=== PATIENT | female | born 1965 | race Caucasian/White ===

== ENCOUNTER 2023-08-25 16:35 | Outpatient (CLI) | payer BC, SELFPAY ==
--- OUTSIDE RECORDS SUMMARY | 2023-08-25 16:37 | XMS_ITS | Clinical Summary ---
Author Organization [facility] Address [address] [place] [address] Care Team Providers Care Portfolio Management Marketing Name Role Phone Cachorro Magaña [facility] Primary Care Provid er Source Comments You are receiving this document as you are listed as the primary care provider,follow-up provider, or the patient has been referred to you for consultation.This is in compliance with the Medicare and[facility], In[facility] EHR Incentive Program,which states Providers who transition their patient to another setting of careor provider of care or refers their patient to another provider of care shouldprovide summary care record for each transition of care or referral. HESIODO Allergies Active Allergy Reactions Criticality Noted Date Comments Azithromycin 03/10/2015 Erythromycin Itching,Nausea And Vomiting 2014 Morphine Itching 01/28/2015 Penicillins Itching,Nausea And Vomiting 015 Medications Medication Sig Dispensed Refills Start Date End Date Status oxyCODONE (AKA ROXICODONE) 5 MG immediate release tabletIndications:ALBERT CORRALES TueApr 02, 2015 11:07 AM Received from: External Pharmacy Take 5 mg by mouth every 6 hours as needed (Take 5 mg by mouth every 6 hours as needed.). Reported on 06/16/2016 Indications: ALBERT MCPHERSON TueApr 02, 2015 11:07 AM Received from: External Pharmacy 0 03/27/2015 Active methocarbamol (AKA ROBAXIN) 500 MG tabletIndications:ALBERT CORRALES TueApr 02, 2015 11:07 AM Received from: External Pharmacy Take 500 mg by mouth 3 times daily. 0 03/27/2015 Active DULoxetine (CYMBALTA) 30 MG capsule Take 1 Cap by mouth daily. 90 Cap 0 06/16/2016 Active traZODone (DESYREL) 100 MG tablet Take 2 Tabs by mouth daily at bedtime. 180 Tab 3 08/13/2016 Active omeprazole (PRILOSEC) 20 MG capsule Take 1 Cap by mouth daily. Reported on 06/16/2016 90 Cap 09/07/2016 Active eszopiclone (LUNESTA) 2 MG tablet Take 1 Tab by mouth daily at bedtime. 30 Tab 3 09/07/2016 Active ALPRAZolam (XANAX) 0.5 MG tablet Take 1 Tab by mouth at bedtime as needed. 20 Tab 09/07/2016 Active promethazine (PHENERGAN) 25 MG tablet Take 1 Tab by mouth every 8 hours as needed for Nausea. 15 Tab 10/26/2016 Active Active Problems Problem Noted Date Diagnosed Date Chronic insomnia 09/07/2016 JANIS (generalized anxiety disorder) 09/07/2016 Tobacco abuse 06/18/2014 Major depressive disorder, recurrent episode, mo derate 06/18/2014 Obesity (BMI 30-39.9) 06/18/2014 Chronic back pain 06/18/2014 Social History Tobacco Use Types Packs/Day Years Used Date Smoking Tobacco: Every Day Cigarettes Smokeless Tobacco: Never Alcohol Use Standard Drinks/Week Comments No 0 (1 standard drink = 0.6 oz pur e alcohol) Sex and Gender Information Value Date Recorded Sex Assigned at Not on file Gender Identity Not on file Sexual Orientation Not on file Last Filed Vital Signs Vital Sign Reading Time Taken Comments Blood Pressure 136/84 10/26/2016 10:08 AM CDT Pulse 80 10/26/2016 10:08 AM CDT Temperature 36.6 ??C (97.9 ??F) 04/02/2015 1 1:08 AM 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 Respiratory Rate - - Oxygen Saturation - - Inhaled Oxygen Concentration - - Weight 115.1 kg (253 lb 12.8 oz) 2016 10:08 AM CDT Height 173.5 cm (5' 8.31) 01/28/2015 1 1:16 AM 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 Body Mass Index 38.24 01/28/2015 11:16 AM 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 Plan of Treatment Health Maintenance Due Date Last Done Comments Cervical Cancer Screening Due 1966 Hep C Screening (Preventive Services) 1966 Mammogram 1966 HIV Screening (Preventive Services) 1982 Adult Preventive Visit 1984 DTaP/Tdap/Td (1 - Tdap) 1985 HepB (1) 1985 FIT Colon Cancer Screening 2010 Zoster/Shingles (1 of 2) 2016 Cholesterol 06/19/2019 06/18/2014 COVID-19 Vaccine (1 - 2022-2 4 season) 2022 Influenza (#1) 2023 HepA Aged Out No longer eligi ble based on patient's age to complete this topic Hib Aged Out No longer eligi ble based on patient's age to complete this topic IPV (Polio) Aged Out No longer eligi ble based on patient's age to complete this topic MCV4 Aged Out No longer eligi ble based on patient's age to complete this topic Pneumococcal Aged Out No longer eligi ble based on patient's age to complete this topic Procedures Procedure Name Priority Date/Time Associated Diagnosis Comments LIPID PANEL & DIRECT LDL (IF NEEDED) Routine 06/18/2014 11:43 AM CDT Screening cholesterol level from Last 3 Months or Most Recently Relevant to Health Maintenance Results * Lipid Panel and Direct LDL(If Needed) (06/18/2014 11:43 AM CDT) Cholesterol 170 0 - 200 mg/dL HP CONVERSION Triglycerides 58 0 - 149 mg/dL HP CONVERSION HDL Cholesterol 56 >39 mg/dL HP CONVERSION Cholesterol/HDL Ratio Screen 3.0 HP CONVERSION LDL Calculated 102 19 - 130 mg/dL HP CONVERSION Hours Fasting 8.5 HP CONVERSION 06/18/2014 11:4 3 AM CDT 06/18/2014 2:48 PM CDT Narrative HP CONVERSION - 06/18/2014 4:01 PM CDT Performed at [facility], [address] [id number] Cachorro Magaña [facility] LAB_1 HP CONVERSION from Last 3 Months or Most Recently Relevant to Health Maintenance Care Teams Portfolio Management Marketing Relationship Specialty Start Date End Date Cachorro Magaña, [facility] [address] [place] [address] PCP - General 11/26/14
--- OUTSIDE RECORDS SUMMARY | 2023-08-25 16:37 | XMS_ITS | Continuity of Care Document ---
Author Organization [facility] Address [address] [place] [address] Phone Care Team Providers Care Parachute Rigger Name Role Phone Charles DE JESUS PTLupe [...] Provider Providers Copied on Encounter [facility], [address], [place], [address], [place] tel:[phone] [facility] 7390 No Information 5 Soto PT Lupe. [address] [place], [address], [place]. tel:[phone] Referring Provider: Cachorro barney MD, [address], [place], [address]. tel:[phone] Est Pt Eval [address] [facility], [address], [place], [id number], [place] tel:[phone] [facility] No Information 5 Jb Winter. [address] , [address], [place], [address], [place]. tel:[phone] Referring Provider: Cachorro barney MD, [address], [place], [address]. tel:[phone] [facility], [address], [place], [address], [place] tel:[phone] [facility] No Information 5 Cathi Bell. [address], [place], [place], [address], [place]. tel:[phone] Referring Provider: Ray Osborne, [address], [place], [address] . tel:[phone] [facility], [address], [place], [place], [address], [place] tel:[phone] [facility] No Information 5 Cathi Bell. [address], [place], [place], [address], [place]. tel:[phone] Referring Provider: Cachorro barney MD, [address], [place], [address]. tel:[phone] Est Pt Eval 25 Min [facility], [address], [place], [place], [address], [place] tel:[phone] [facility] No Information 5 King MIGUEL ANGEL Bell. [address], [facility], [place], [place], [address], [place]. tel:[phone] Referring Provider: Cachorro barney MD, [address], [place], [address]. tel:[phone] [facility], [address], [place], [place], [address], [place] tel:[phone] [facility] No Information 3 No Information Referring Provider: Ray Osborne, [address], [place], [address] . tel:[phone] Offic/outpt E&m New Mod-hi 45 [facility], [address], [place], [place], [address], [place] tel:[phone] [facility] No Information 3 No Information Referring Provider: Ray Osborne, [address], [place], [address] . tel:[phone] Family History Family Member Type Diagnosis Age At Onset No Information Payers Payer name Insurance type Covered libertarian ID Authoriza tion(s) Medical Assistance [facility] [id number] Social History Type Description Quantity Date Captured [...]
--- OUTSIDE RECORDS SUMMARY | 2023-08-25 16:37 | XMS_ITS | Continuity of Care Document ---
Author Organization [facility] Address [address] [place] [address] Phone Care Team Providers Care Cyber Security Engineer Name Role Phone Will Yordan GONZALEZ Unavailable [...] Diagnoses Date Provider Providers Copied on Encounter [facility], [address] [place] [address] [place], [address] , [place] tel:[phone] [facility] [place] No Information 2 Neo Farr. [address] [place], [place], [address] , [place]. tel: [phone] [facility], [address] [place] [address] [place], [address] , [place] tel: [phone] [facility] [place] No Information 7 Syl Cordova. [address] [place], [place], [address] , [place]. tel:[phone] OFFICE/OUTPAT IENT VISIT, EST [facility], [address] [place] [address] [place], [address] , [place] tel: [phone] [facility] [place] Back Pain (chief complaint) CervicalgiaLow back painOther intervertebral disc degeneration, lumbar regionPain in left shoulder 7 Syl Tasha. [address] [place], [place], [address] , [place]. tel: [phone] Referring Provider: [place] [facility] [address] [place], [address]. tel:[phone] [facility], [address] [place], [address] , [place] tel: [phone] [facility] [place] Myalgia 7 Syl Tasha. [address] [place], [place], [address] , [place]. tel: [phone] Referring Provider: [place] N[facility] [address] [place], [address]. tel:[phone] OFFICE/OUTPAT IENT VISIT, [facility], [address] [place], [address] , [place] tel: [phone] [facility] [place] Back Pain (chief complaint) Low back painCervicalgiaOther intervertebral disc degeneration, lumbar region Sep- 7 Syl Tasha. [address] [place], [place], [address] , [place]. tel: [phone] Referring Provider: [place] N[facility] [address] [place], [address]. tel:[phone] [facility], [address] [place], [address] , [place] tel: [phone] [facility] Other intervertebral disc degeneration, lumbar region 7 Mary Lloyd. [address] [place], [place], [address] , [place]. tel: [phone] Referring Provider: [place] [facility] [address] [place], [address]. tel:[phone] [facility], [address] [place], [address] , [place] tel: [phone] [facility] [place] Back Pain (chief complaint) Low back painCervicalgiaMyalg ia 7 Syl Tasha. [address] [place], [place], [address] , [place]. tel: [phone] Referring Provider: [place] N[facility] [address] [place], [address]. tel:[phone] OFFICE/OUTPAT IENT VISIT, [facility], [address] [place] [address] [place], [address] , [place] tel: [phone] [facility] [place] Back Pain (chief complaint) Pain in right kneePain in left shoulderPain in left kneeLow back painCervicalgia 7 Syl Tasha. [address] [place], [place], [address] , [place]. tel: [phone] Referring Provider: [place] [facility] [address] [place], [address]. tel:[phone] OFFICE/OUTPAT IENT VISIT, [facility], [address] [place], [address] , [place] tel: [phone] [facility] [place] Back Pain (chief complaint) Low back painCervicalgiaPain in left shoulderPain in right kneePain in left knee 7 Syl Tasha. [address] [place] [place], [place], [address] , [place]. tel: [phone] Referring Provider: [place] [facility] [address] [place], [address]. tel:[phone] OFFICE/OUTPAT IENT VISIT, [facility], [address] [place], [address] , [place] tel: [phone] [facility] [place] Back Pain (chief complaint) Low back painCervicalgiaPain in left kneePain in right kneeOther intervertebral disc degeneration, lumbar region 7 Syl Tasha. [address] [place], [address] , [place]. tel: [phone] Referring Provider: [facility] [address] [place], [address]. tel:[phone] OFFICE/OUTPAT IENT VISIT, EST [facility], [address] [place], [address] , [place] tel: [phone] [facility] [place] Back Pain (chief complaint) Low back painCervicalgia 7 Syl Tasha. [address] [place], [place], [address] , [place]. tel: [phone] Referring Provider: [place] [facility] [address] [place], [address]. tel:[phone] [facility], [address] [place], [address] , [place] tel: [phone] [facility] [place] Myalgia Fe 7 Syl Tasha. [address] [place], [place], [address] , [place]. tel: [phone] Referring Provider: [place] [facility] [address] [place], [address]. tel:[phone] [facility], [address] [place], [address] , [place] tel: [phone] [facility] [place] Other intervertebral disc degeneration, lumbar region 7 Mary Lloyd. [address] [place] [place], [place], [address] , [place]. tel: [phone] Referring Provider: [place] [facility] [address] [place], [address]. tel:[phone] OFFICE/OUTPAT IENT VISIT, [facility], [address] [place] [address], [id number] , [place] tel: [phone] [facility] [place] Back Pain (chief complaint) Low back painCervicalgia 7-201 7 Syl Tasha. [address] [place] [address] [place], [address] , [place]. tel: [phone] Referring Provider: [place] [facility] [address] [place], [address]. tel:[phone] OFFICE/OUTPAT IENT VISIT, [facility], [address] [place] [address], [id number] , [place] tel: [phone] [facility] [place] Back Pain (chief complaint) CervicalgiaLow back pain 8201 6 Syl Tasha. [address] [place] [address], [address] , [place]. tel: [phone] Referring Provider: [place] [facility] [address] [place], [address]. tel:[phone] OFFICE/OUTPAT IENT VISIT, [facility], [address] [place] [address], [id number] , [place] tel: [phone] [facility] [place] Back Pain (chief complaint) Low back painPain in left shoulderPain in left kneePain in right knee Sep-2 0-201 6 Syl Tasha. [address] [place], [place], [address] , [place]. tel: [phone] Referring Provider: [place] [facility] [address] [place], [address]. tel:[phone] OFFICE/OUTPAT IENT VISIT, [facility], [address] [place] [address], [id number] , [place] tel: [phone] [facility] [place] Back Pain (chief complaint) Low back painCervicalgiaPain in right kneePain in left knee 6 Syl Tasha. [address] [place] [place], [place], [address] , [place]. tel: [phone] Referring Provider: [place] [facility] [address] [place], [address]. tel:[phone] OFFICE/OUTPAT IENT VISIT, [facility], [address] [place], [address] , [place] tel: [phone] [facility] [place] Back Pain (chief complaint) Low back pain 6 Syl Tasha. [address] [place] [place], [place], [address] , [place]. tel: [phone] Referring Provider: [facility] [address] [place], [address]. tel:[phone] OFFICE/OUTPAT IENT VISIT, [facility], [address] [place], [address] , [place] tel: [phone] [facility] [place] Back Pain (chief complaint) Pain in left shoulderCervicalgiaL ow back pain 6 Syl Tasha. [address] [place] [place], [place], [address] , [place]. tel: [phone] Referring Provider: [facility] [address] [place], [address]. tel:[phone] OFFICE/OUTPAT IENT VISIT, [facility], [address] [place], [address] , [place] tel: [phone] [facility] [place] Back Pain (chief complaint) Low back painCervicalgiaLong term (current) use of opiate analgesicOther intervertebral disc degeneration, lumbar region 6 Syl Tasha. [address] [facility] [place], [place], [address] , [place]. tel: [phone] Referring Provider: [place] [facility] [address] [place], [address]. tel:[phone] [facility], [address] [place], [address] , [place] tel: [phone] [facility] [place] Trochanteric bursitis, right hip June-2 3-201 6 Kokayeff Prema. [address] [place] [place], [place], [address] , [place]. tel: [phone] Referring Provider: [facility] [address] [place], [address]. tel:[phone] OFFICE/OUTPAT IENT VISIT, [facility], [address] [facility] [place], [address] , [place] tel: [phone] [facility] [place] Back Pain (chief complaint) Pain in right kneePain in left kneeTrochanteric bursitis, right hipLow back painCervicalgia June-0 2-201 6 Syl Tasha. [address] [place], [place], [address] , [place]. tel: [phone] Referring Provider: [place] [facility] [address] [place], [address]. tel:[phone] OFFICE/OUTPAT IENT VISIT, [facility], [address] [place], [address] , [place] tel: [phone] [facility] [place] low back pain (chief complaint) Low back painCervicalgiaLumba go with sciatica, right sidePain in left shoulder Apr-3 1-201 6 Syl Tasha. [address] [place], [place], [address] , [place]. tel: [phone] Referring Provider: [facility] [address] [place], [address]. tel:[phone] [facility], [address] [place] [place], [address] , [place] tel: [phone] [facility] [place] Other intervertebral disc degeneration, lumbar region Apr- 6 Mary Prema. [address] [place], [address] , [place]. tel: [phone] Referring Provider: [facility] [address] [place], [address]. tel:[phone] [facility], [address] [place], [address] , [place] tel: [phone] [facility] [place] Other intervertebral disc degeneration, lumbar region 6 Syl Tasha. [address] [place], [address] , [place]. tel: [phone] OFFICE/OUTPAT IENT VISIT, EST [facility], [address] [place] [place], [address] , [place] tel: [phone] [facility] [place] low back pain (chief complaint) Low back painCervicalgia 6 Syl Tasha. [address] [place], [place], [address] , [place]. tel: [phone] Referring Provider: [place] N[facility] [address] [place], [address]. tel:[phone] OFFICE/OUTPAT IENT VISIT, EST [facility], [address] [place], [address] , [place] tel: [phone] [facility] [place] low back pain (chief complaint) Low back painCervicalgiaPain in left shoulder 6 Syl Tasha. [address] [place], [place], [address] , [place]. tel: [phone] Referring Provider: [place] N[facility] [address] [place], [address]. tel:[phone] OFFICE/OUTPAT IENT VISIT, [facility], [address] [place], [address] , [place] tel: [phone] [facility] [place] low back pain (chief complaint) CervicalgiaLow back painLumbago with sciatica, right sidePain in left shoulder 6 Syl Tasha. [address] [place], [address] , [place]. tel: [phone] Referring Provider: [place] [facility] [address] [place], [address]. tel:[phone] OFFICE/OUTPAT IENT VISIT, [facility], [address] [place], [address] , [place] tel: [phone] [facility] [place] Back Pain (chief complaint) Low back painCervicalgiaLumba go with sciatica, right side Jan- 5 Syl Tasha. [address] [place], [place], [address] , [place]. tel: [phone] Referring Provider: [place] N[facility] [address] [place], [address]. tel:[phone] OFFICE CONSULTATION [facility], [address] [place], [address] , [place] tel: [phone] [facility] [place] Back Pain (chief complaint) Low back painCervicalgiaLumba go with sciatica, right sidePain in left shoulderLong term (current) use of opiate analgesic Jan-0 5 Syl Tasha. [address] [place], [place], [address] , [place]. tel: [phone] Referring Provider: [place] N[facility] [address] [place], [address]. tel:[phone] Family History Family Member Type Diagnosis Age At Onset Father Problem (finding) Family history unknown Brother Problem (finding) Family history unknown Payers Payer name Insurance type Covered constitution party ID Authoriza tiartis(s) No Information Social History Type Description Quantity Date Captured Comments Sex Female Smoking Status No Information Chief Complaint And Reason For Visit No Information Reason For Referral Reason For Referral No Information Plan Of Treatment Date Type Action Status Referral Ordered: [facility] (related to Pain in left shoulder) ordered Referral Referred To: [facility] [address] [place] [phone] Ordered: Referrals: [facility]. Location: [facility]. Evaluate and treat ordered Referral Ordered: [facility] (related to Pain in left shoulder) ordered Referral Referred To: [facility] [address] [place] [phone] Ordered: Referrals: [facility]. Consult ordered Referral Ordered: X-RAY [...] and increased activity. She recently traveled to [place] to visit her mother who is in a intermediate. She received 30% relief from her hip [...] had her lumbar MRI last night at [facility]. Her pain is worse from having to [...] not taken opioids since she moved from [place] 3 years ago. She reports smoking marijuana [...] muscle tightness. No other concerns today. Medical Records:[place], [place] - MRI records Dr. Luca Florian - PCP recordsDrDaily Last at [facility] - PCP records Past Treatment:PT - no relief KAREN - moderate relief. Past Medication:oxycodone - good relief morphine - allergicOxyContin 60mg BID - SE Cascade/Vicodin - no reliefmelatonin - mild benefitgabapantin - [...]
--- OUTSIDE RECORDS SUMMARY | 2023-08-25 16:37 | XMS_ITS | Clinical Summary ---
Author Organization [facility] Address [place], [place] [address] Care Team Providers Care Acoustical Installer Name Role Phone Pcp, No Primary Care Provider Unavailabl e Social History Tobacco Use Types Packs/Day Years Used Date Smoking Tobacco: Never Assessed Sex and Gender Information Value Date Recorded Sex Assigned at Not on file Gender Identity Not on file Sexual Orientation Not on file Plan of Treatment Health Maintenance Due Date Last Done Comments Tdap 1977 Depression screening for age 12+ 1978 HIV for age 15-65 1981 BMI (ht and wt on same day) for age 18+ 1984 Hepatitis C screening for ag e 18-79 1984 Tetanus booster 1986 Pap test for age 21-65 1987 Colonoscopy through age 75 2011 Lipids for age 45-75 2011 Mammogram for age 45-75 2011 Zoster (shingles) series for age 50+ (1 of 2) 2016 COVID-19 vaccine series (2022-24 season) 2022 Influenza for age 50-64 10/09/2023 Pneumococcal series for age 6-64 Aged Out No longer eligible based on patient's age to complete this topic Care Teams Acoustical Installer Relationship Specialty Start Date End Date Pcp, No . PCP - General 12/20/16
== END 2023-08-25 16:36 | disposition home or self-care (01) ==
PROVIDERS: PCP Internal Medicine; Visit Provider Internal Medicine
DX: I10 Essential (primary) hypertension (principal); Z13.220 Encounter for screening for lipoid disorders
CPT/HCPCS: 80053; 80061

== ENCOUNTER 2024-09-09 02:17 | Observation (INO) | payer BC, SELFPAY ==
--- OUTSIDE RECORDS SUMMARY | 2014-08-19 12:28 | XMS_ITS | Continuity of Care Document ---
Author Organization [facility] Address [address] [place] [address] Phone Care Team Providers Care Diet Counselor Name Role Phone Charles DE JESUS PTLupe Unavailable Unavailable Allergies, Adverse Reactions, Alerts Substance Reaction Status Criticality penicillin G Hives/Skin Rash Active No Informati on WARNIN allergy(ies) could not be collected because the type is not supported. Please contact the source practice for further details. Medications Medication Instructions Dosage Effective Dates (start - stop) Status Comments sertraline 50 mg tablet take 1 tablet by oral route every day 50 MG - Active Procedures Procedure Date Est Pt Eval 15 Min Pain Assessment And Follow Up Plan Docum ented Inj Anes Epidur; Lumb/sac 1 Le 15 Inj Anes Epidur; Lumb/sac-ea A 15 Inj Anes Epidur; Lumb/sac 1 Le 15 Trans Epid Lumbosac each addl 5 Epidurography Est Pt Eval 25 Min Assay of benzodiazepines Assay of amphetamine or methamphetamine Assay of barbiturates, not elsewhere spe cified Assay of cocaine or metabolite 15 Assay of methadone Opiate(s), drug and metabolites, each pr ocedure Drug confirmation, each procedure Pain Assessment And Follow Up Plan Docum ented Epid/SAB Lumbosacral Epidurography Lo Osm Contr Mat (200-249mg) Depomedrol 80mg Offic/outpt E&m New Mod-hi 45 3 QA DONE Advance Directives Directive Yes / No Effective Date File Name No Information Encounters Encounter Description Practice Location Reason(s) For Visit Diagnoses Date Provider Providers Copied on Encounter [facility], [address], [place], [id number], [place] tel:[phone] [place] [facility] 7390 No Information 5 Soto PT Lupe. [address] [place], [id number], [place]. tel:[phone] Referring Provider: Cachorro barney MD, [address], [place], [address]. tel:[phone] Est Pt Eval [address] [facility], [address], [place], [id number], [place] tel:[phone] [place] [facility] No Information 5 Jb Winter. [address] , [address], [place], [id number], [place]. tel:[phone] Referring Provider: Cachorro barney MD, [address], [place], [address]. tel:[phone] [facility], [address], [place], [address], [place] tel:[phone] [facility] [place] No Information 5 Cathi Bell. [address], [place], [place], [id number], [place]. tel:[phone] Referring Provider: Ray Osborne, [address], [place], [address] . tel:[phone] [facility], [address], [place], [place], [id number], [place] tel:[phone] [facility] [place] No Information 5 Cathi Bell. [address], [place], [place], [id number], [place]. tel:[phone] Referring Provider: Cachorro barney MD, [address], [place], [address]. tel:[phone] Est Pt Eval 25 Min [facility], [address], [place], [place], [id number], [place] tel:[phone] [facility] No Information 5 King MIGUEL ANGEL Bell. [address], [facility], [place], [place], [id number], [place]. tel:[phone] Referring Provider: Cachorro barney MD, [address], [place], [address]. tel:[phone] [facility], [address], [place], [place], [address], [place] tel:[phone] [facility] No Information 3 No Information Referring Provider: Ray Osborne, [address], [place], [address] . tel:[phone] Offic/outpt E&m New Mod-hi 45 [facility], [address], [place], [place], [id number], [place] tel:[phone] [facility] No Information 3 No Information Referring Provider: Ray Osborne, [address], [place], [address] . tel:[phone] Family History Family Member Type Diagnosis Age At Onset No Information Payers Payer name Insurance type Covered constitution party ID Authoriza tion(s) Medical Assistance [facility] [id number] Social History Type Description Quantity Date Captured Comments Sex Female Smoking Status No Information Chief Complaint And Reason For Visit No Information Reason For Referral Reason For Referral No Information History Of Present Illness Encounter Date Complaint History Of Prese nt Illness No Information Functional Status Date Functional Assessmen t No Information Instructions Date Instruction Additional Infor mation No Information Assessments Type Assessment Date No Information Patient Care Teams Name Effective Dates (start - stop) Status Members No Information
--- OUTSIDE RECORDS SUMMARY | 2014-08-19 12:28 | XMS_ITS | Continuity of Care Document ---
Author Organization [facility] Address [address] [place] [address] Phone Care Team Providers Care Gin Pole Operator Name Role Phone Charles DE JESUS PTLupe [...] Date Provider Providers Copied on Encounter [facility], [address], [place], [id number], [place] tel:[phone] [place] [facility] 7390 No Information 5 S[facility] PT Lupe. [address], [id number], [place]. tel:[phone] Referring Provider: Cachorro barney MD, [address], [place], [address]. tel:[phone] Est Pt Eval 15 Min [facility], [address], [place], [id number], [place] tel:[phone] [facility] No Information 5 Jb Winter. [address] , [address], [place], [address], [place]. tel:[phone] Referring Provider: Cachorro barney MD, [address], [place], [address]. tel:[phone] [facility], [address], [address], [place] tel:[phone] [facility] [place] No Information 5 Cathi Bell. [address], [place], [place], [id number], [place]. tel:[phone] Referring Provider: Ray Osborne, [address], [place], [address] . tel:[phone] [facility], [address], [place], [place], [address], [place] tel:[phone] [facility] [place] No Information 5 Cathi Bell. [address], [place], [place], [address], [place]. tel:[phone] Referring Provider: Cachorro barney MD, [address], [place], [address]. tel:[phone] Est Pt Eval [address] [facility], [address], [place], [place], [address], [place] tel:[phone] [facility] No Information 5 King MIGUEL ANGEL Bell. [address], [facility], [place], [place], [id number], [place]. tel:[phone] Referring Provider: Cachorro barney MD, [address], [place], [address]. tel:[phone] [facility], [address], [place], [place], [address], [place] tel:[phone] [facility] No Information 3 No Information Referring Provider: Ray Osborne, [address], [place], [address] . tel:[phone] Offic/outpt E&m New Mod-hi [address] [facility], [address], [place], [place], [address], [place] tel:[phone] [facility] No Information 3 No Information Referring Provider: Ray Osborne, [address], [place], [address] . tel:[phone] Family History Family Member Type Diagnosis Age At Onset No Information Payers Payer name Insurance type Covered libertarian ID Authoriza tion(s) Medical Assistance [facility] [id number] Social History Type Description Quantity Date Captured [...]
--- OUTSIDE RECORDS SUMMARY | 2021-03-26 11:13 | XMS_ITS | Continuity of Care Document ---
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 ascending stairs, bending and standing. Symptoms are relieved by lying down and pain meds/drugs. Back Pain (comments) Cleo is he re today for follow up evaluation and medication refills relating to her back and neck pain. She has #1 oxycodone remaining - on track. Her pain has been worse lately due to travel and increased activity. She recently traveled to [place] to visit her mother who is in a senior living. She received 30% relief from her hip injection. She continues home exercises regularly. No other concerns today. Back Pain Severity level i s moderate. Duration: chronic. The problem is worsening. It occurs persistently. Location of pain is upper back, middle back, lower back, gluteal area, neck, left shoulder and bilateral knees. Pain is radiated to the right thigh.The patient describes the pain as an ache and sharp. Symptoms are aggravated by ascending stairs, bending and standing. Symptoms are relieved by lying down and pain meds/drugs. Back Pain (comments) Cleo is he re today for follow up evaluation and medication refills relating to her back pain. She has no medication remaining. She received 50% relief from her KAREN. She would like to scheduled a hip bursa injection. Her knee pain has become more severe over the past month and this is her primary concern. She states her right knee is worse than the left and she has not had surgery on this knee. Since her hysterectomy she has experienced frequent urination and she states this often effects her UDT results. No other concerns today. low back pain Severity level i s severe. Duration: chronic. The problem is worsening. It occurs persistently. Location of pain is lower back, neck, right hip, right leg, right knee and left shoulder.The patient describes the pain as sharp. Symptoms are aggravated by bending and standing. Symptoms are relieved by lying down and pain meds/drugs. low back pain (comments) Cleo gregory s here today for follow up evaluation and medication refills relating to her low back pain. She has no medication remaining - 0.5 days short. She states To this point she has received 60% relief from her KAREN. She experienced some nauseas SE after her injection but otherwise it went well. Her increase in oxycodone provided increased relief. She C/O pain in her right hip which has been present over the past few months. I believe this may be bursitis and we will consider intervention after her recent KAREN has taken full effect. No other concerns today. low back pain Severity level i s severe. Duration: chronic. The problem is worsening. It occurs persistently. Location of pain is upper back, middle back, lower back, neck, bilateral shoulders and bilateral hips.The patient describes the pain as an ache, burning, sharp and tingling. Symptoms are aggravated by bending and sitting. Symptoms are relieved by lying down and pain meds/drugs. low back pain (comments) Cleo gregory s here today for follow up evaluation and medication refills relating to her low back pain. She has no medication remaining - 3.5 days short. Her pain has been worse lately and we have still have no MRI records of her low back. She received good relief from her Medrol Dose Jeremy last January. She is interested in an KAREN once her imaging is received. No other concerns today. low back pain (comments) Cleo gregory s here today for follow up evaluation and medication refills relating to her low back pain. She has #7 oxycodone remaining - on track. Her worst pain is in her low back but she also c/o shoulder and neck pain. She continues home exercise regularly. Her medications continue to be effective for pain reduction. She c/o increased pain in her hips. She has been more depressed recently after putting down her dog. She states she has lost some weight. She does not see a psychiatrist and is looking for someone to take over prescribing a benzo. No other concerns today. low back pain Severity level i s severe. Duration: chronic. The problem is worsening. It occurs persistently. Location of pain is lower back and neck.The patient describes the pain as an ache and sharp. Symptoms are aggravated by bending, walking and squating. Symptoms are relieved by lying down, pain meds/drugs and sitting. low back pain Onset: gradual w ithout injury. Severity level is moderate. Duration: chronic. The problem is fluctuating. It occurs intermittently. Location of pain is upper back, lower back, gluteal area, left flank and right flank. Pain is radiated to the left thigh and right thigh.The patient describes the pain as an ache and sharp. Symptoms are aggravated by daily activities, sitting, standing and walking. Symptoms are relieved by pain meds/drugs and rest. low back pain (comments) Here to day for follow up evaluation and medication refill. Current pain medication regimen effective for back/neck pain relief and she is on track with her pain med count today. She continues home exercises. She had her lumbar MRI last night at [facility]. Her pain is worse from having to go through this procedure. No other concerns today. Back Pain (comments) Cleo is he re today for follow up evaluation and medication refills relating to her low back and neck pain. She has #2 oxycodone remaining - on track. She slipped and fell recently which has aggrevated her low back pain. She reports experiencing a popping sensation in her low back and is concerned it may be a spinal fracture. her current medication regimen continues to provide significant relief. no other concerns today. Back Pain Severity level i s moderate-severe. Duration: chronic. The problem is worsening. It occurs persistently. Location of pain is upper back, middle back, lower back, neck, right hip and bilateral shoulders.The patient describes the pain as an ache and sharp. Symptoms are aggravated by bending, lifting and standing. Symptoms are relieved by lying down and sitting. Back Pain (comments) This patien t is referred by Dr. Luca Florian. Cleo is here today for her initial consult regarding her low back and neck pain which began 11 years ago. Her pain is primarily located in her low back and radiates down her right leg. Her low back and neck pain has gradually increased since she fell 5 years ago. She has not taken opioids since she moved from [place] 3 years ago. She reports smoking marijuana during this time but only because she has not been prescribed pain medication. She currenlty smokes cigarettes as well but has been trying to quit. She was recently diagnosed with Scoliosis. She has received good relief from injections in the past and would be interested in continuing these. She has not had neck or back surgery. She CO mild muscle tightness. No other concerns today. Medical Records:[place], [place] - MRI records Dr. Luca Florian - PCP recordsDrDaily [facility] PCP [facility] Past Treatment:PT - no relief KAREN - moderate relief. Past Medication:oxycodone - good relief morphine - allergicOxyContin 60mg BID - [place]/Vicodin - no reliefmelatonin - mild benefitgabapantin - no reliefCymbalta - [place] -OTC pain medication - no relief Back Pain Onset: 11 years ago. Severity level is severe. Duration: chronic. Location of pain is upper back, lower back, neck and left shoulder.The patient describes the pain as an ache and stabbing. Symptoms are aggravated by bending, lifting, walking and exertion. Symptoms are relieved by lying down and pain meds/drugs. Functional Status Date Functional Assessmen t No Information Instructions Date Instruction Additional Infor mation No Information Assessments Type Assessment Date No Information Patient Care Teams Name Effective Dates (start - stop) Status Members No Information
--- OUTSIDE RECORDS SUMMARY | 2021-03-26 11:13 | XMS_ITS | Continuity of Care Document ---
Author Organization [facility] Address [address] LASHAY Tavarez [address] Phone Care Team Providers Care Marketing Director Name Role Phone Will Yordan GONZALEZ Unavailable [...] Diagnoses Date Provider Providers Copied on Encounter [facility], [address] [place] [address] [place], [id number] , [place] tel:[phone] [facility] [place] No Information 2 Neo Farr. [address] [facility] [place], [id number] , [place]. tel: [phone] [facility], [address] [place] [address] [place], [place], [id number] , [place] tel: [phone] [facility] [place] No Information 7 Syl Cordova. [address] [facility] [place], [id number] , [place]. tel:[phone] OFFICE/OUTPAT IENT VISIT, EST [facility], [address] [place] [address] [place], [place], [address] , [place] tel: [phone] [facility] [place] Back Pain (chief complaint) CervicalgiaLow back painOther intervertebral disc degeneration, lumbar regionPain in left shoulder Syl Tasha. [address] [place], [place], [address] , [place]. tel: [phone] Referring Provider: India N[facility] [address] [place], [address]. tel:[phone] [facility], [address] [facility] [place], [address] , [place] tel: [phone] [facility] [place] Myalgia 7 Syl Tasha. [address] [facility] [place], [address] , [place]. tel: [phone] Referring Provider: India Nieto [facility] [address] [place], [address]. tel:[phone] OFFICE/OUTPAT IENT VISIT, [facility], [address] [facility] [place], [id number] , [place] tel: [phone] [facility] [place] Back Pain (chief complaint) Low back painCervicalgiaOther intervertebral disc degeneration, lumbar region 7 Syl Tasha. [address] [facility] [place], [place], [address] , [place]. tel: [phone] Referring Provider: India Nieto [facility] [address] [place], [address]. tel:[phone] [facility], [address] [facility] [place], [address] , [place] tel: [phone] [facility] [place] Other intervertebral disc degeneration, lumbar region 7 Mary Lloyd. [address] [place], [place], [address] , [place]. tel: [phone] Referring Provider: India Nieto [facility] [address] [place], [address]. tel:[phone] [facility], [address] Juan Manuel [place], [id number] , [place] tel: [phone] [facility] [place] Back Pain (chief complaint) Low back painCervicalgiaMyalg ia 7 Syl Tasha. [address] [facility] Roberto [place], [address] , [place]. tel: [phone] Referring Provider: India Nieto [facility] [address] [place], [address]. tel:[phone] OFFICE/OUTPAT IENT VISIT, [facility], [address] [place] [address] [place], [address] , [place] tel: [phone] [facility] [place] Back Pain (chief complaint) Pain in right kneePain in left shoulderPain in left kneeLow back painCervicalgia 7 Syl Tasha. [address] [facility] [place], [address] , [place]. tel: [phone] Referring Provider: India Nieto [facility] [address] [place], [address]. tel:[phone] OFFICE/OUTPAT IENT VISIT, [facility], [address] [facility] [place], [id number] , [place] tel: [phone] [facility] [place] Back Pain (chief complaint) Low back painCervicalgiaPain in left shoulderPain in right kneePain in left knee 7 Syl Tasha. [address] [facility] [place], [address] , [place]. tel: [phone] Referring Provider: India Nieto [facility] [address] [place], [address]. tel:[phone] OFFICE/OUTPAT IENT VISIT, [facility], [address] [facility] [place], [place], [address] , [place] tel: [phone] [facility] [place] Back Pain (chief complaint) Low back painCervicalgiaPain in left kneePain in right kneeOther intervertebral disc degeneration, lumbar region 7 Syl Tasha. [address] [place], [id number] , [place]. tel: [phone] Referring Provider: India Nieto [facility] [address] [place], [address]. tel:[phone] OFFICE/OUTPAT IENT VISIT, [facility], [address] [facility] [place], [id number] , [place] tel: [phone] [facility] [place] Back Pain (chief complaint) Low back painCervicalgia 0 7 Syl Tasha. [address] [place] [place], [id number] , [place]. tel: [phone] Referring Provider: India Nieto [facility] [address] [place], [address]. tel:[phone] [facility], [address] [facility] [place], [id number] , [place] tel: [phone] [facility] [place] Myalgia Fe 7 Syl Tasha. [address] [place] [place], [address] , [place]. tel: [phone] Referring Provider: India Nieto [facility] [address] [place], [address]. tel:[phone] [facility], [address] [facility] [place], [id number] , [place] tel: [phone] [facility] [place] Other intervertebral disc degeneration, lumbar region 7 Mary Lloyd. [address] [facility] Roberto [place], [address] , [place]. tel: [phone] Referring Provider: India Nieto [facility] [address] [place], [address]. tel:[phone] OFFICE/OUTPAT IENT VISIT, [facility], [address] [facility] [place], [address] , [place] tel: [phone] [facility] [place] Back Pain (chief complaint) Low back painCervicalgia 7-201 7 Syl Tasha. [address] [facility] [place], [place], [address] , [place]. tel: [phone] Referring Provider: India Nieto [facility] [address] [place], [address]. tel:[phone] OFFICE/OUTPAT IENT VISIT, [facility], [address] [place] [address] [place], [address] , [place] tel: [phone] [facility] [place] Back Pain (chief complaint) CervicalgiaLow back pain 8-201 6 Syl Tasha. [address] [facility] [place], [address] , [place]. tel: [phone] Referring Provider: India Nieto [facility] [address] [place], [address]. tel:[phone] OFFICE/OUTPAT IENT VISIT, [facility], [address] [place] [address] [place], [address] , [place] tel: [phone] [facility] [place] Back Pain (chief complaint) Low back painPain in left shoulderPain in left kneePain in right knee Sep-2 0-201 6 Syl Tasha. [address] [facility] [place], [place], [address] , [place]. tel: [phone] Referring Provider: India Nieto [facility] [address] [place], [address]. tel:[phone] OFFICE/OUTPAT IENT VISIT, [facility], [address] [place] [address] [place], [address] , [place] tel: [phone] [facility] [place] Back Pain (chief complaint) Low back painCervicalgiaPain in right kneePain in left knee 6 Syl Tasha. [address] [facility] [place], [address] , [place]. tel: [phone] Referring Provider: India Nieto [facility] [address] [place], [address]. tel:[phone] OFFICE/OUTPAT IENT VISIT, [facility], [address] [facility] [place], [place], [address] , [place] tel: [phone] [facility] [place] Back Pain (chief complaint) Low back pain 6 Syl Tasha. [address] [facility] Roberto [place]an [place], [place], [address] , [place]. tel: [phone] Referring Provider: India Nieto [facility] [address] [place], [address]. tel:[phone] OFFICE/OUTPAT IENT VISIT, [facility], [address] [facility] [place], [address] , [place] tel: [phone] [facility] [place] Back Pain (chief complaint) Pain in left shoulderCervicalgiaL ow back pain 6 Syl Tasha. [address] [facility] [place], [place], [address] , [place]. tel: [phone] Referring Provider: India Nieto [facility] [address] [place], [address]. tel:[phone] OFFICE/OUTPAT IENT VISIT, [facility], [address] [facility] [place], [address] , [place] tel: [phone] [facility] [place] Back Pain (chief complaint) Low back painCervicalgiaLong term (current) use of opiate analgesicOther intervertebral disc degeneration, lumbar region 6 Syl Tasha. [address] [facility] Roberto [place]an [place], [place], [address] , [place]. tel: [phone] Referring Provider: India Nieto [facility] [address] [place], [address]. tel:[phone] [facility], [address] [facility] [place], [place], [address] , [place] tel: [phone] [facility] [place] Trochanteric bursitis, right hip June-2 3- 6 Kokayeff Prema. [address] [facility] Roberto [place], [address] , [place]. tel: [phone] Referring Provider: India Niet[facility] [address] [place], [address]. tel:[phone] OFFICE/OUTPAT IENT VISIT, [facility], [address] [facility] [place], [place], [address] , [place] tel: [phone] [facility] [place] Back Pain (chief complaint) Pain in right kneePain in left kneeTrochanteric bursitis, right hipLow back painCervicalgia June-0 2-201 6 Syl Tasha. [address] [facility] Roberto [place], [address] , [place]. tel: [phone] Referring Provider: India Niet[facility] [address] [place], [address]. tel:[phone] OFFICE/OUTPAT IENT VISIT, [facility], [address] [facility] [place], [place], [address] , [place] tel: [phone] [facility] [place] low back pain (chief complaint) Low back painCervicalgiaLumba go with sciatica, right sidePain in left shoulder Apr-3 1-201 6 Syl Tasha. [address] [facility] Roberto [place], [place], [address] , [place]. tel: [phone] Referring Provider: India Niet[facility] [address] [place], [address]. tel:[phone] [facility], [address] [place], [id number] , [place] tel: [phone] [facility] [place] Other intervertebral disc degeneration, lumbar region Apr- 6 Mary Chae. [address] [facility] Roberto [place], [address] , [place]. tel: [phone] Referring Provider: India Nieto [facility] [address] [place], [address]. tel:[phone] [facility], [address] [facility] [place], [id number] , [place] tel: [phone] [facility] [place] Other intervertebral disc degeneration, lumbar region 6 Syl Tasha. [address] [facility] Roberto [place]an [place], [address] , [place]. tel: [phone] OFFICE/OUTPAT IENT VISIT, EST [facility], [address] [facility] [place], [id number] , [place] tel: [phone] [facility] [place] low back pain (chief complaint) Low back painCervicalgia 6 Syl Tasha. [address] [place] [place], [address] , [place]. tel: [phone] Referring Provider: India Niet[facility] [address] [place], [address]. tel:[phone] OFFICE/OUTPAT IENT VISIT, EST [facility], [address] [facility] [place], [address] , [place] tel: [phone] [facility] [place] low back pain (chief complaint) Low back painCervicalgiaPain in left shoulder 6 Syl Tasha. [address] [facility] Roberto [place], [place], [address] , [place]. tel: [phone] Referring Provider: India Niet[facility] [address] [place], [address]. tel:[phone] OFFICE/OUTPAT IENT VISIT, [facility], [address] [place] [place], [id number] , [place] tel: [phone] [facility] [place] low back pain (chief complaint) CervicalgiaLow back painLumbago with sciatica, right sidePain in left shoulder 6 Syl Tasha. [address] [place] [place], [address] , [place]. tel: [phone] Referring Provider: India Niet[facility] [address] [place], [address]. tel:[phone] OFFICE/OUTPAT IENT VISIT, [facility], [address] [facility] [place], [address] , [place] tel: [phone] [facility] [place] Back Pain (chief complaint) Low back painCervicalgiaLumba go with sciatica, right side 5 Syl Tasha. [address] [place] [place], [address] , [place]. tel: [phone] Referring Provider: India Niet[facility] [address] [place], [address]. tel:[phone] OFFICE CONSULTATION [facility], [address] [facility] [place], [place], [address] , [place] tel: [phone] [facility] [place] Back Pain (chief complaint) Low back painCervicalgiaLumba go with sciatica, right sidePain in left shoulderLong term (current) use of opiate analgesic Jan- 5 Syl Tasha. [address] [place], [address] , [place]. tel: [phone] Referring Provider: India Nieto [facility] [address] [place], [address]. tel:[phone] Family History Family Member Type Diagnosis Age At Onset Father Problem (finding) Family history unknown Brother Problem (finding) Family history unknown Payers Payer name Insurance type Covered alliance party ID Authoriza tion(s) No Information Social History Type Description Quantity Date Captured Comments Sex Female Smoking Status No Information Sexual Orientation Don't Know Chief Complaint And Reason For Visit No Information Reason For Referral Reason For Referral No Information Plan Of Treatment Date Type Action Status Referral Ordered: [facility] (related to Pain in left shoulder) ordered Referral Referred To: [facility] [address] [place] [phone] Ordered: Referrals: [facility]. Location: [facility]. Evaluate and treat ordered Referral Ordered: [facility] (related to Pain in left shoulder) ordered Referral Referred To: [facility] [address] [place] [phone] Ordered: Referrals: [facility]. Consult ordered Referral Ordered: X-RAY EXAM [...] her left shoulder before she moved to [place]. The patient reports taking additional Tylenol due [...] and increased activity. She recently traveled to [place] to visit her mother who is in a chcf. She received 30% relief from her hip [...] had her lumbar MRI last night at [facility]. Her pain is worse from having to [...] not taken opioids since she moved from [place] 3 years ago. She reports smoking marijuana [...] muscle tightness. No other concerns today. Medical Records:[place], [place] - MRI records Dr. Luca Florian - PCP recordsDrDaily Last at [facility] PCP records Past Treatment:PT - no relief KAREN - moderate relief. Past Medication:oxycodone - good relief morphine - allergicOxyContin 60mg BID - [place]/Vicodin - no reliefmelatonin - mild benefitgabapantin - [...]
[2024-09-09] VITALS (39 sets, daily range): BP systolic 109–154; BP diastolic 56–122; PULSE 63–104; RESP 12–22; TEMP 36.2–36.9; O2SAT 92–100; BMI 26.4; BMI 26.5
--- OUTSIDE RECORDS SUMMARY | 2024-09-09 02:20 | XMS_ITS | Clinical Summary ---
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 Gender Identity Not on file Sexual Orientation Not on file Plan of Treatment Health Maintenance Due Date Last Done Comments Tetanus booster 1977 Depression screening for age 12+ 1978 HIV for age 15-65 1981 BMI (ht and wt on same day) for age 18+ 1984 Hepatitis C screening for age 18-79 1984 Hepatitis B series for 19+ (1 of 3 - 19+ 3-dose series ) 1985 Pap test for age 21-65 1987 Colonoscopy through age 75 2011 Lipids for age 45-75 2011 Mammogram for age 45-75 2011 Pneumococcal series for age 50+ (1 of 1 - PCV) 017 Zoster (shingles) series for age 50+ (1 of 2) 03/22/19 17 COVID-19 vaccine series ( - 2023- season) 4 Influenza Vaccine (#1) 2024 Care Teams Damage Appraiser Relationship Specialty Start Date End Date Pcp, No . PCP - General 12/20/16
--- OUTSIDE RECORDS SUMMARY | 2024-09-09 02:20 | XMS_ITS | Clinical Summary ---
Author Organization [facility] Address [address] [place] [address] Care Team Providers Care Grain Sacker Name Role Phone Cachorro Magaña [facility] Primary Care Provid er Source Comments You are receiving this document as you are listed as the primary care provider,follow-up provider, or the patient has been referred to you for consultation.This is in compliance with the Medicare and[facility] EHR Incentive Program,which states Providers who transition their patient to another setting of careor provider of care or refers their patient to another provider of care shouldprovide summary care record for each transition of care or referral. SUPR Allergies Active Allergy Reactions Criticality Noted Date Comments Azithromycin 03/10/2015 Erythromycin Itching,Nausea And Vomiting 2014 Morphine Itching 01/28/2015 Penicillins Itching,Nausea And Vomiting 015 Medications oxyCODONE (AKA ROXICODONE) 5 MG immediate release tabletIndicatio ns:ALBERT MCPHERSON TueApr 02, 2015 11:07 AM Received from: External Pharmacy Take 5 mg by mouth every 6 hours as needed (Take 5 mg by mouth every 6 hours as needed.). Reported on 06/16/2016 Indications: ALBERT MCPHERSON TueApr 02, 2015 11:07 AM Received from: External Pharmacy 0 03/27/2015 Active methocarbamol (AKA ROBAXIN) 500 MG tabletIndicatio ns:ALBERT MCPHERSON TueApr 02, 2015 11:07 AM Received [...] drink = 0.6 oz pur e alcohol) Comments Unknown Sex and Gender Information Value Date Recorded Sex Assigned at Not on file Legal Sex Female 9:42 AM CDT Gender Identity Not on file Sexual Orientation Not on file Last Filed Vital Signs Vital Sign Reading Time Taken Comments Blood Pressure 136/84 10/26/2016 10:08 AM CDT Pulse 80 10/26/2016 10:08 AM CDT Temperature 36.6 C (97.9 F) 04/02/2015 11:08 AM [facility] Respiratory Rate - - Oxygen Saturation - - Inhaled Oxygen Concentration - - Weight 115.1 kg (253 lb 12.8 oz) 2016 10:08 AM CDT Height 173.5 cm (5' 8.31) 01/28/2015 1 1:16 AM [facility] Body Mass Index 38.24 01/28/2015 11:16 AM [facility] Plan of Treatment Health Maintenance Due Date Last Done Comments Cervical Cancer Screening Due 1966 Hep C Screening (Preventive Services) 1966 Mammogram 1966 HIV Screening (Preventive Services) 1982 Adult Preventive Visit 1984 DTaP/Tdap/Td Vaccine (1 - Tdap) 1985 HepB Vaccine (1) 1985 FIT Colon Cancer Screening 2010 Pneumococcal Vaccine 50+ Yrs (1 of 1 - PCV) 2016 Zoster/Shingles Vaccine (1 of 2) 2016 Cholesterol 06/19/2019 06/18/2014 COVID-19 Vaccine (1 - 2023-2 5 season) 2023 Influenza Vaccine (#1) 2024 HepA Vaccine Aged Out No longer eligi ble based on patient's age to complete this topic Hib Vaccine Aged Out No longer eligi ble based on patient's age to complete this topic IPV (Polio) Vaccine Aged Out No longe r eligible based on patient's age to complete this topic MCV4 Vaccine Aged Out No longer eligi ble based on patient's age to complete this topic Meningococcal B Vaccine Aged Out No l onger eligible based on patient's age to complete [...] - 06/18/2014 4:01 PM CDT Performed at [facility], [address] [place] [address] [place] [address] Cachorro Magaña [facility] LAB_1 Tracy l Result HP CONVERSION from Last 3 Months or Most Recently Relevant to Health Maintenance Insurance [facility] [place] [address] Care Teams Grain Sacker Relationship Specialty Start Date End Date Cachorro Magaña [facility] [address] [place] [address] PCP - General 11/26/14
--- NOTE | 2024-09-09 02:29 | CRLHL7_ITS ---
For Patients: As a result of the Century Cures Act, medical imaging exams and procedure reports are released immediately into your electronic medical record. You may view this report before your referring provider. If you have questions, please contact your health care provider. INDICATION: Altered mental status and confusion. COMPARISON: None. TECHNIQUE: CT of the brain / head without intravenous contrast. Multiplanar axial, coronal, and sagittal reformats were reconstructed. FINDINGS: No intracranial hemorrhage. Normal appearance of the white matter. No acute or subacute cortically based infarct. No cerebral edema. No mass or mass effect. Normal ventricles. No skull fractures. No worrisome focal bone lesion. IMPRESSION: Normal head CT. Please note that all CT scans at this facility use dose modulation, iterative reconstruction, and/or weight-based dosing when appropriate to reduce radiation dose to as low as reasonably achievable. Dictated by Deepthi Fairbanks MD @ 09/09/2024 4:13:56 AM (Electronically Signed)
--- NOTE | 2024-09-09 02:32 | ED.GENADULT ---
HPI - General Adult General Chief complaint: Altered Mental Status <Carlota Leblanc MD - Last Filed: 09/10/24 02:34> Stated complaint: confusion <Carlota Leblanc MD - Last Filed: 09/10/24 02:34> Time Seen by Provider: 09/09/24 02:26 <Carlota Leblanc MD - Last Filed: 09/10/24 02:34> Source: EMS <Carlota Leblanc MD - Last Filed: 09/10/24 02:34> Mode of arrival: EMS <Carlota Leblanc MD - Last Filed: 09/10/24 02:34> History of Present Illness HPI narrative: 59-year-old female with altered mental status, EMS called to home by who reports that he found her in the bathroom acting ?off?. They do not have a better description. She seems confused, mumbling christian sentiment. is unsure if there was illness or overdose. She has had diarrhea the past day. Denies any injury or trauma. Has not been exhibiting signs of recent fever. We do not have a baseline on this patient. There is a clinic visit that is 3 years old, indicating that she gets care at a pain clinic but we do not have any records. She has not had any primary care visits in years. According to EMS, reported that she has prescriptions for bupropion but I suspect that might of been buprenorphine based on prior records. Also prescriptions for trazodone, alprazolam and Soma. She has unable to answer any questions for me, keeps just mumbling, cheeses help me, Shubham help me. Reported allergies to morphine and penicillin in the chart which cannot be verified. Documented prior history of tobacco and opiate addiction. ROS is unreliable. Patient would not participate <Carlota Leblanc MD - Last Filed: 09/10/24 02:34> Related Data Home medications: Home Medications ?Medication ?Instructions ?Recorded ?Confirmed buprenorphine HCl 8 mg sublingual 8 mg sublingual DIRECTED 09/09/21 09/09/24 tablet carisoprodol 350 mg tablet 350 mg PO TID PRN 09/09/21 09/09/24 cholecalciferol (vitamin D3) 50 50 mcg PO DAILY 09/09/24 09/09/24 mcg (2,000 unit) capsule clonidine HCl 0.1 mg tablet 0.1 mg PO 3XD PRN anxiety 09/09/24 09/09/24 linaclotide 145 mcg capsule 145 mcg PO QAM 09/09/24 09/09/24 (Linzess) meloxicam 15 mg tablet 15 mg PO DAILY pain 09/09/24 09/09/24 omeprazole 20 mg capsule,delayed 20 mg PO QAM 09/09/24 09/09/24 release trazodone 100 mg tablet 100 mg PO BID 09/09/24 09/09/24 Previous Rx's ?Medication ?Instructions ?Recorded alprazolam 2 mg tablet 2 mg PO TID Anxiety #90 tabs 08/21/24 <Carlota Leblanc MD - Last Filed: 09/10/24 02:34> Allergies/adverse reactions: Allergies Allergy/AdvReac Type Severity Reaction Status Date / Time morphine Allergy Unknown Itch Verified 08/25/23 14:44 Penicillin Allergy Severe Hives Uncoded 08/25/23 14:44 <Carlota Leblanc MD - Last Filed: 09/10/24 02:34> [facility] Medical History: Medical History (Updated 09/09/24 @ 12:24 by Trudy Griffith MD) Chronic prescription benzodiazepine use ?Z79.899 - Other meterman (current) drug therapy (ICD-10) Healthcare maintenance ?Z00.00 - Encounter for general adult medical examination without abnormal findings (ICD-10) Hypertension ?I10 - Essential (primary) hypertension (ICD-10) Chronic pain syndrome ?G89.4 - Chronic pain syndrome (ICD-10) History of chronic pain ?Z87.898 - Personal history of other specified conditions (ICD-10) Anxiety ?F41.9 - Anxiety disorder, unspecified (ICD-10) <Carlota Leblanc MD - Last Filed: 09/10/24 02:34> Social History: Social History What is your current living situation?: I have a place to live at present, but am concerned about future Problems where you live: no known problems Problems where you live details: NA In the past 12 months, utilities in danger of being shut off: no In past 12 months, lack of transportation kept you from medical appts, meetings, work, or getting things needed for daily living: yes In the past 12 mos, have been you worried that your food would run out before you had money to buy more?: often true In the past 12 mos, the food you bought just didn't last and you didn't have money to buy more?: often true Highest level of school completed/degree received: high school graduate Smoking Status: Current every day smoker What tobacco products do you use: cigarettes Smoking packs per day: 1.5 Smoking cigarettes per day: 30.0 Smoking quit date/years: >15 years ago Second hand tobacco smoke exposure: Yes How often do you have a drink containing alcohol: never AUDIT-C Alcohol total score: 0 Non-prescribed substance use: denies use Non-prescribed substance use details: prabha Caffeine: Yes (sometimes 4 cups) How often does anyone, including family, friends and others, physically hurt you: never How often does anyone, including family, friends and others, insult or talk down to you: never How often does anyone, including family, friends and others, threaten you with harm: unable to answer How often does anyone, including family, friends and others, scream or curse at you: never service: No Health Related Social Needs: housing instability, housed, with risk of homelessness (Z59.811), food insecurity (Z59.41) and transportation insecurity (Z59.82) <Carlota Leblanc MD - Last Filed: 09/10/24 02:34> Exam Const: Vital Signs, click to edit/add: Vital Signs - 24 hr 09/09/24 02:38 09/09/24 03:18 09/09/24 03:19 Temperature 98.4 F Pulse Rate 78 73 Pulse Rate [Pulse Oximeter] 63 Respiratory Rate 22 13 13 Blood Pressure 109/68 Blood Pressure [Ri ght Upper Arm] 149/110 H Pulse Oximetry 100 93 92 Oxygen Delivery Me thod Room Air 09/09/24 03:30 09/09/24 03:30 09/09/24 03:31 Temperature Pulse Rate 87 80 Pulse Rate [Pulse Oximeter] Respiratory Rate 16 15 13 Blood Pressure 114/73 Blood Pressure [Ri ght Upper Arm] Pulse Oximetry 95 94 Oxygen Delivery Me thod 09/09/24 03:32 09/09/24 03:45 09/09/24 03:48 Temperature Pulse Rate 82 97 Pulse Rate [Pulse Oximeter] Respiratory Rate 16 16 13 Blood Pressure 148/122 H Blood Pressure [Ri ght Upper Arm] Pulse Oximetry 96 94 Oxygen Delivery Me thod 09/09/24 04:00 09/09/24 04:02 09/09/24 04:17 Temperature Pulse Rate 91 81 Pulse Rate [Pulse Oximeter] Respiratory Rate 16 16 14 Blood Pressure 145/68 H 131/82 Blood Pressure [Ri ght Upper Arm] Pulse Oximetry 98 99 Oxygen Delivery Me thod 09/09/24 04:31 09/09/24 04:46 09/09/24 05:02 Temperature Pulse Rate 86 88 88 Pulse Rate [Pulse Oximeter] Respiratory Rate 13 13 14 Blood Pressure 120/80 133/81 122/81 Blood Pressure [Ri ght Upper Arm] Pulse Oximetry 97 97 98 Oxygen Delivery Me thod 09/09/24 05:16 09/09/24 05:28 09/09/24 06:01 Temperature Pulse Rate 85 104 H 86 Pulse Rate [Pulse Oximeter] Respiratory Rate 13 16 16 Blood Pressure 124/79 135/89 122/71 Blood Pressure [Ri ght Upper Arm] Pulse Oximetry 96 97 96 Oxygen Delivery Me thod 09/09/24 06:31 09/09/24 06:32 09/09/24 06:45 Temperature Pulse Rate 90 86 87 Pulse Rate [Pulse Oximeter] Respiratory Rate 14 13 17 Blood Pressure 125/75 Blood Pressure [Ri ght Upper Arm] Pulse Oximetry 97 97 97 Oxygen Delivery Me thod 09/09/24 07:00 09/09/24 07:01 09/09/24 07:30 Temperature Pulse Rate 85 87 84 Pulse Rate [Pulse Oximeter] Respiratory Rate 13 14 13 Blood Pressure 128/75 Blood Pressure [Ri ght Upper Arm] Pulse Oximetry 97 96 97 Oxygen Delivery Me thod 09/09/24 07:32 09/09/24 07:33 09/09/24 07:45 Temperature Pulse Rate 81 83 81 Pulse Rate [Pulse Oximeter] Respiratory Rate 13 13 12 Blood Pressure 125/73 Blood Pressure [Ri ght Upper Arm] Pulse Oximetry 98 97 98 Oxygen Delivery Me thod 09/09/24 08:04 09/09/24 08:15 09/09/24 08:32 Temperature Pulse Rate 91 78 77 Pulse Rate [Pulse Oximeter] Respiratory Rate 13 18 14 Blood Pressure 154/93 H 113/56 L Blood Pressure [Ri ght Upper Arm] Pulse Oximetry 98 98 95 Oxygen Delivery Me thod 09/09/24 09:00 09/09/24 09:02 09/09/24 09:03 Temperature Pulse Rate 80 76 78 Pulse Rate [Pulse Oximeter] Respiratory Rate 13 12 Blood Pressure 118/77 Blood Pressure [Ri ght Upper Arm] Pulse Oximetry 98 96 94 Oxygen Delivery Me thod <Carlota Leblanc MD - Last Filed: 09/10/24 02:34> Vital Signs, click to edit/add: Vital Signs - 24 hr 09/09/24 02:38 09/09/24 03:18 09/09/24 03:19 Temperature 98.4 F Pulse Rate 78 73 Pulse Rate [Pulse Oximeter] 63 Respiratory Rate 22 13 13 Blood Pressure 109/68 Blood Pressure [Ri ght Upper Arm] 149/110 H Pulse Oximetry 100 93 92 Oxygen Delivery Me thod Room Air 09/09/24 03:30 09/09/24 03:30 09/09/24 03:31 Temperature Pulse Rate 87 80 Pulse Rate [Pulse Oximeter] Respiratory Rate 16 15 13 Blood Pressure 114/73 Blood Pressure [Ri ght Upper Arm] Pulse Oximetry 95 94 Oxygen Delivery Me thod 09/09/24 03:32 09/09/24 03:45 09/09/24 03:48 Temperature Pulse Rate 82 97 Pulse Rate [Pulse Oximeter] Respiratory Rate 16 16 13 Blood Pressure 148/122 H Blood Pressure [Ri ght Upper Arm] Pulse Oximetry 96 94 Oxygen Delivery Me thod 09/09/24 04:00 09/09/24 04:02 09/09/24 04:17 Temperature Pulse Rate 91 81 Pulse Rate [Pulse Oximeter] Respiratory Rate 16 16 14 Blood Pressure 145/68 H 131/82 Blood Pressure [Ri ght Upper Arm] Pulse Oximetry 98 99 Oxygen Delivery Me thod 09/09/24 04:31 09/09/24 04:46 09/09/24 05:02 Temperature Pulse Rate 86 88 88 Pulse Rate [Pulse Oximeter] Respiratory Rate 13 13 14 Blood Pressure 120/80 133/81 122/81 Blood Pressure [Ri ght Upper Arm] Pulse Oximetry 97 97 98 Oxygen Delivery Me thod 09/09/24 05:16 09/09/24 05:28 09/09/24 06:01 Temperature Pulse Rate 85 104 H 86 Pulse Rate [Pulse Oximeter] Respiratory Rate 13 16 16 Blood Pressure 124/79 135/89 122/71 Blood Pressure [Ri ght Upper Arm] Pulse Oximetry 96 97 96 Oxygen Delivery Me thod 09/09/24 06:31 09/09/24 06:32 09/09/24 06:45 Temperature Pulse Rate 90 86 87 Pulse Rate [Pulse Oximeter] Respiratory Rate 14 13 17 Blood Pressure 125/75 Blood Pressure [Ri ght Upper Arm] Pulse Oximetry 97 97 97 Oxygen Delivery Me thod 09/09/24 07:00 09/09/24 07:01 09/09/24 07:30 Temperature Pulse Rate 85 87 84 Pulse Rate [Pulse Oximeter] Respiratory Rate 13 14 13 Blood Pressure 128/75 Blood Pressure [Ri ght Upper Arm] Pulse Oximetry 97 96 97 Oxygen Delivery Me thod 09/09/24 07:32 09/09/24 07:33 09/09/24 07:45 Temperature Pulse Rate 81 83 81 Pulse Rate [Pulse Oximeter] Respiratory Rate 13 13 12 Blood Pressure 125/73 Blood Pressure [Ri ght Upper Arm] Pulse Oximetry 98 97 98 Oxygen Delivery Me thod 09/09/24 08:04 09/09/24 08:15 09/09/24 08:32 Temperature Pulse Rate 91 78 77 Pulse Rate [Pulse Oximeter] Respiratory Rate 13 18 14 Blood Pressure 154/93 H 113/56 L Blood Pressure [Ri ght Upper Arm] Pulse Oximetry 98 98 95 Oxygen Delivery Me thod 09/09/24 09:00 09/09/24 09:02 09/09/24 09:03 Temperature Pulse Rate 80 76 78 Pulse Rate [Pulse Oximeter] Respiratory Rate 13 12 Blood Pressure 118/77 Blood Pressure [Ri ght Upper Arm] Pulse Oximetry 98 96 94 Oxygen Delivery Me thod <Ray May MD - Last Filed: 09/09/24 08:54> Documenting provider has reviewed patient's vital signs: yes <Carlota Leblanc MD - Last Filed: 09/10/24 02:34> Exam limitations: altered mental status <Carlota Leblanc MD - Last Filed: 09/10/24 02:34> Other: Combative and restless. Very briefly can be redirected but begins writhing and becomes uncooperative again very quickly. No situational awareness. Clearly is moving all 4 extremities, can hold herself up, supporting her airway without difficulty. <Carlota Leblanc MD - Last Filed: 09/10/24 02:34> HENMT: Common normals: normocephalic, head/scalp atraumatic, moist oral mucous membranes and dentition normal <MD Rangel Mahan Last Filed: 09/10/24 02:34> Head and scalp: normocephalic and atraumatic <MD Rangel Mahan Last Filed: 09/10/24 02:34> Face and sinus: normal facial exam <MD Rangel Mahan Last Filed: 09/10/24 02:34> Mouth: oral and palatal mucosa normal <MD Rangel Mahan Last Filed: 09/10/24 02:34> Throat: posterior oropharynx normal <MD Rangel Mahan Last Filed: 09/10/24 02:34> Eye: Other: Could only get a basic visual inspection. Patient would not allow proper ocular exam. <MD Rangel Mahan Last Filed: 09/10/24 02:34> Neck & C-Spine: Common normals: full ROM <MD Rangel Mahan Last Filed: 09/10/24 02:34> General: normal visual inspection <MD Rangel Mahan Last Filed: 09/10/24 02:34> Chest: Common normals: inspection of chest normal <MD Rangel Mahan Last Filed: 09/10/24 02:34> Other: Cigarette kay unsure but none visible on skin <MD Rnagel Mahan Last Filed: 09/10/24 02:34> Resp: Common normals: normal respiratory effort, no use of accessory muscles and clear to auscultation bilaterally <MD Rangel Mahan Last Filed: 09/10/24 02:34> Effort & inspection: able to speak in complete sentences <MD Rangel Mahan Last Filed: 09/10/24 02:34> Auscultation: clear to auscultation bilaterally <MD Rangel Mahan Last Filed: 09/10/24 02:34> Cardio: Common normals: regular rate, regular rhythm, S1 normal heart sound, S2 normal heart sound and no murmurs <MD Rangel Mahan Last Filed: 09/10/24 02:34> Rate: regular rate <MD Rangel Mahan Last Filed: 09/10/24 02:34> Rhythm: regular rhythm <MD Rangel Mahan Last Filed: 09/10/24 02:34> Heart sounds: S1 normal and S2 normal <MD Rangel Mahan Last Filed: 09/10/24 02:34> GI: Common normals: Normal to inspection, nondistended, normoactive bowel sounds present, soft to palpation and no hepatosplenomegaly <MD Rangel Mahan Last Filed: 09/10/24 02:34> Palpation: soft and no hepatosplenomegaly <MD Rangel Mahan Last Filed: 09/10/24 02:34> Back & Pelvis: Other: Short visual inspection shows no obvious deformity, bruising or trauma. <MD Rangel Mahan Last Filed: 09/10/24 02:34> Extremity: Common normals: normal to inspection and normal capillary refill <MD Rangel Mahan Last Filed: 09/10/24 02:34> Other: No signs of any joint enlargement <MD Rangel Mahan Last Filed: 09/10/24 02:34> Neuro: Common normals: moves all extremities <MD Rangel Mahan Last Filed: 09/10/24 02:34> Other: Awake, does not follow commands. Mumbling ?help me Shubham? repeatedly, will not answer questions but will briefly make eye contact. No situational awareness. Fully awake. Moves all extremities with good strength. Uncooperative and irritable does not make any aggressive or combative moves towards us but was reportedly fighting EMS at the scene. Was not given any medication by EMS <Carlota Leblanc MD - Last Filed: 09/10/24 02:34> Psych: Appearance: unkempt <Carlota Leblanc MD - Last Filed: 09/10/24 02:34> Attitude: uncooperative <MD Rangel Mahan Last Filed: 09/10/24 02:34> Activity/motor behavior: psychomotor agitation and restless <Carlota Leblanc MD - Last Filed: 09/10/24 02:34> Mood and affect: irritable <MD Rangel Mahan Last Filed: 09/10/24 02:34> Thought process: impoverished and perseverating <Carlota Leblanc MD - Last Filed: 09/10/24 02:34> Attention/concentration: attention grossly impaired and concentration grossly impaired <Carlota Leblanc MD - Last Filed: 09/10/24 02:34> Insight: poor <Carlota Leblanc MD - Last Filed: 09/10/24 02:34> Judgement: poor <MD Rangel Mahan Last Filed: 09/10/24 02:34> Skin: Common normals: no rashes or lesions noted <MD Rangel Mahan Last Filed: 09/10/24 02:34> General skin exam: no rashes or lesions noted <Carlota Leblanc MD - Last Filed: 09/10/24 02:34> Course Course ED Course: 59-year-old female with history of substance abuse and chronic pain disorder presenting with altered mental status. Timeline reported by EMS is approximately 2 hours. Recent diarrhea but no other signs of major illness or trauma. Suspect substance intoxication. Certainly could be from her typical medications an improper doses or additional recreational drugs. Patient is placed in restraints for staff and patient safety. Will continue to re-evaluate per protocol and hopefully wean these as soon as able. Upon arrival given 10 mg of IM Zyprexa and then about 5 minutes later, 50 of IM Benadryl and 2 mg of IM lorazepam. With these interventions, she starting to calm down but is still not answering questions. She still moving all 4 extremities easily, breathing nonlabored. Nursing reporting that they can get her to answer a few questions here in there but she is refusing to do so for me. The meds will probably cause more sedation over the next 15 minutes. Will attempt to get a head CT, typical altered mental status blood work including toxicology and intoxication screening. Will placed on engine monitor, obtain EKG and monitor closely. At this time she is protecting her airway and does not require intubation. Low suspicion that this could be a stroke or other acute neurological process but hopefully we can get that head CT soon and watch closely for any further developing neurological changes. Differential diagnosis also including sepsis, acute metabolic derangement, accidental ingestion or suicide attempt. Amongst others. Will monitor closely and attempt to contact family for further for clarification of history. Update: reports that she has had significant nausea, poor oral intake and loose stools for the past several days, has been tugging at least a gal of water per day. This would certainly explain some of the electrolyte abnormalities that we are seeing. Patient is much more calm, we were able to get the head CT. Again add on a lipase level and since ultrasound is here for another patient, I am going to do a right upper quadrant ultrasound to try to investigate this abdominal pain and nausea as well. Consider CT. I have started replacing the hyponatremia with 1 L of normal saline over 2 hours and then will move on maintenance fluid. Six potassium riders have been ordered, 1 dose of 40 mEq oral potassium has been ordered as well, but I do not think that she is quite awake enough for that but will continue to encourage p.o. replacement once able. Will likely need hospitalization. <Carlota Leblanc MD - Last Filed: 09/10/24 02:34> Reevaluation(s) Time of Reevaluation #1: 07:42 <Carolta Leblanc MD - Last Filed: 09/10/24 02:34> Reevaluation #1: I spoke with Dr. Grande from Cardiology. I let him know that the troponin had gone up. She is not complaining of any chest pain even when specifically asked. EKGs continue to show no ischemic changes. She does have some prolonged QT which can certainly be explained by the medications that she takes. Her mental status continues to improve. She is quite sleepy of course from medications that she was given but she can be aroused to answer questions I do not fully trust her reliability with her answers for difficult things but she seems to be able to tell me yes no questions with pretty good reliability. Dr. Grande does not recommend that we continue to trend troponin. He specifically states that this most likely was an episode of hypoperfusion secondary to hypotension during her episode of delirium. We discussed getting an echo in the next couple of days while we continue to correct her electrolytes and work on the delirium. He specifically does not recommend trending troponin. I spoke with Dr. Griffith and she is refusing to take the patient until another troponin has been performed. She says that she is ?not declining the patient? but will not allow me to admit the patient unless I have another troponin that is stable or only slightly elevated. If it is continuing to elevate significantly, she is declining to admit the patient. She did not provide parameters regarding her specific intent of value of this choice. I did remind her again that Cardiology is not recommending that we do that. I also let her know that this would mean that I will be handing over care to another ED provider or significantly prolonging my shift to accomplish this for her. She would like a troponin drawn in our, this will take about 1.5 hours from the time of call to be reported. Troponin will be ordered per her insistence only. We will continue to replace potassium and sodium as ordered. Heading over care to incoming day shift partner at 8:30 a.m.. <Carlota Leblanc MD - Last Filed: 09/10/24 02:34> Time of Reevaluation #2: 08:51 <Ray May MD - Last Filed: 09/09/24 08:54> Reevaluation #2: Yadira -- inherited this patient at change of shift pending repeat troponin. Mentation has improved. Repeat troponin is also flat to improved. Improved sodium and potassium levels as well. I am anticipating admission as planned. <Ray May MD - Last Filed: 09/09/24 08:54> Vital Signs Vital signs: Initial Vital Signs Respiratory Rate 22 09/09/24 02:30 Pulse Oximetry 100 09/09/24 02:30 Vital Signs Respiratory Rate 22 09/09/24 02:30 Pulse Oximetry 100 09/09/24 02:30 Temperature 97.2 F L 09/09/24 23:00 Pulse Rate 77 09/09/24 23:00 Respiratory Rate 16 09/09/24 23:00 Blood Pressure 114/78 09/09/24 23:00 Pulse Oximetry 96 09/09/24 23:00 Oxygen Delivery Method Room Air 09/09/24 23:00 <Carlota Leblanc MD - Last Filed: 09/10/24 02:34> Initial Vital Signs Respiratory Rate 22 09/09/24 02:30 Pulse Oximetry 100 09/09/24 02:30 Vital Signs Respiratory Rate 22 09/09/24 02:30 Pulse Oximetry 100 09/09/24 02:30 Temperature 97.2 F L 09/09/24 23:00 Pulse Rate 77 09/09/24 23:00 Respiratory Rate 16 09/09/24 23:00 Blood Pressure 114/78 09/09/24 23:00 Pulse Oximetry 96 09/09/24 23:00 Oxygen Delivery Method Room Air 09/09/24 23:00 <Ray May MD - Last Filed: 09/09/24 08:54> Medications Administered Medications: Generic Name Dose Route Start Last Admin Trade Name Freq PRN Reason Stop Dose Admin Acetaminophen 650 mg 09/09/24 12:20 09/09/24 14:10 Acetaminophen 325 Mg Tablet PO 650 mg Q8H PRN Administration Alprazolam 1 mg 09/09/24 14:00 09/09/24 20:53 Alprazolam 0.25 Mg Tablet PO 1 mg TID YOSSI Administration Buprenorphine HCl 8 mg 09/09/24 11:15 09/09/24 11:29 Buprenorphine Hcl 2 Mg Tab.Subl SUBLINGUAL 8 mg QAM YOSSI Administration Buprenorphine HCl 4 mg 09/09/24 14:00 09/09/24 14:10 Buprenorphine Hcl 2 Mg Tab.Subl SUBLINGUAL 4 mg DAILY@1400 YOSSI Administration Buprenorphine HCl 4 mg 09/09/24 21:00 09/09/24 20:53 Buprenorphine Hcl 2 Mg Tab.Subl SUBLINGUAL 4 mg HS YOSSI Administration Clonidine HCl 0.1 mg 09/09/24 09:59 09/09/24 14:10 Clonidine Hcl 0.1 Mg Tablet PO 0.1 mg TID PRN Administration Anxiety Enoxaparin Sodium 40 mg 09/09/24 21:00 09/09/24 20:53 Enoxaparin 40 Mg/0.4 Ml Inj SUBCUT 40 mg HS YOSSI Administration Lidocaine 1 patch 09/09/24 12:30 09/09/24 12:50 Lidocaine 5% Patch TRANSDERMA 1 patch Q24H YOSSI Administration Protocol Nicotine 1 patch 09/09/24 12:30 09/09/24 12:49 Nicotine 14 Mg Patch TRANSDERMA 1 patch Q24H YOSSI Administration Sodium Chloride 5 ml 09/09/24 21:00 09/09/24 21:01 Sodium Chloride 0.9 % (Flush) 10 Ml Syringe IVF 5 ml BID YOSSI Administration Tizanidine HCl 2 mg 09/09/24 12:30 09/10/24 00:40 Tizanidine Hcl 4 Mg Tablet PO 2 mg Q12H YOSSI Administration Trazodone HCl 100 mg 09/09/24 21:00 09/09/24 20:53 Trazodone Hcl 50 Mg Tablet PO 100 mg BID YOSSI Administration Discontinued Medications Generic Name Dose Route Start Last Admin Trade Name Freq PRN Reason Stop Dose Admin Desmopressin Acetate 2 mcg 09/09/24 17:45 09/09/24 23:40 Desmopressin Acetate 4 Mcg/Ml Inj IVP 09/09/24 23:46 2 mcg Q6H YOSSI Administration Diazepam 5 mg 09/09/24 02:55 09/09/24 02:57 Diazepam 5 Mg/Ml Inj IM 5 mg Q2H PRN Administration Agitation Diphenhydramine HCl 50 mg 09/09/24 02:27 09/09/24 02:32 Diphenhydramine 50 Mg/Ml Inj IM 09/09/24 02:28 50 mg ONCE ONE Administration Sodium Chloride 1,000 mls @ 500 mls/hr 09/09/24 03:42 09/09/24 05:55 0.9 % Sodium Chloride 1000 Ml IV 09/09/24 05:41 Infused .Q2H YOSSI Infusion Potassium Chloride 10 meq in 100 mls @ 100 mls/hr 09/09/24 03:45 09/09/24 10:32 Potassium Chloride IVPB 09/09/24 12:14 100 mls/hr Q90M YOSSI Administration Sodium Chloride 1,000 mls @ 150 mls/hr 09/09/24 05:52 09/09/24 09:16 0.9 % Sodium Chloride 1000 Ml IV 150 mls/hr .Q6H40M YOSSI Infusion Sodium Chloride 1,000 mls @ 100 mls/hr 09/09/24 10:30 09/09/24 21:45 0.9 % Sodium Chloride 1000 Ml IV 09/09/24 20:29 Infused .Q10H YOSSI Infusion Dextrose 1,000 mls @ 50 mls/hr 09/09/24 18:30 09/09/24 18:37 5 % Dextrose 1000 Ml IV 09/09/24 21:29 50 mls/hr .Q20H YOSSI Administration Dextrose 1,000 mls @ 50 mls/hr 09/09/24 21:45 09/09/24 22:55 5 % Dextrose 1000 Ml IV 09/09/24 22:44 0 mls/hr .Q20H YOSSI Infusion Lorazepam 2 mg 09/09/24 02:27 09/09/24 02:33 Lorazepam 2 Mg/Ml Inj IM 09/09/24 02:28 2 mg ONCE ONE Administration Olanzapine 10 mg 09/09/24 02:27 09/09/24 02:34 Olanzapine 5 Mg/Ml Inj IM 09/09/24 02:28 10 mg ONCE ONE Administration Potassium Chloride 60 meq 09/09/24 09:59 09/09/24 11:29 Potassium Chloride 10 Meq Capsule Er PO 09/09/24 10:00 60 meq ONCE ONE Administration Potassium Chloride 40 meq 09/09/24 16:46 09/09/24 17:35 Potassium Chloride 10 Meq Capsule Er PO 09/09/24 16:47 40 meq ONCE ONE Administration <Carlota Leblanc MD - Last Filed: 09/10/24 02:34> Generic Name Dose Route Start Last Admin Trade Name Freq PRN Reason Stop Dose Admin Acetaminophen 650 mg 09/09/24 12:20 09/09/24 14:10 Acetaminophen 325 Mg Tablet PO 650 mg Q8H PRN Administration Alprazolam 1 mg 09/09/24 14:00 09/09/24 20:53 Alprazolam 0.25 Mg Tablet PO 1 mg TID YOSSI Administration Buprenorphine HCl 8 mg 09/09/24 11:15 09/09/24 11:29 Buprenorphine Hcl 2 Mg Tab.Subl SUBLINGUAL 8 mg QAM YOSSI Administration Buprenorphine HCl 4 mg 09/09/24 14:00 09/09/24 14:10 Buprenorphine Hcl 2 Mg Tab.Subl SUBLINGUAL 4 mg DAILY@1400 YOSSI Administration Buprenorphine HCl 4 mg 09/09/24 21:00 09/09/24 20:53 Buprenorphine Hcl 2 Mg Tab.Subl SUBLINGUAL 4 mg HS YOSSI Administration Clonidine HCl 0.1 mg 09/09/24 09:59 09/09/24 14:10 Clonidine Hcl 0.1 Mg Tablet PO 0.1 mg TID PRN Administration Anxiety Enoxaparin Sodium 40 mg 09/09/24 21:00 09/09/24 20:53 Enoxaparin 40 Mg/0.4 Ml Inj SUBCUT 40 mg HS YOSSI Administration Lidocaine 1 patch 09/09/24 12:30 09/09/24 12:50 Lidocaine 5% Patch TRANSDERMA 1 patch Q24H YOSSI Administration Protocol Nicotine 1 patch 09/09/24 12:30 09/09/24 12:49 Nicotine 14 Mg Patch TRANSDERMA 1 patch Q24H YOSSI Administration Sodium Chloride 5 ml 09/09/24 21:00 09/09/24 21:01 Sodium Chloride 0.9 % (Flush) 10 Ml Syringe IVF 5 ml BID YOSSI Administration Tizanidine HCl 2 mg 09/09/24 12:30 09/10/24 00:40 Tizanidine Hcl 4 Mg Tablet PO 2 mg Q12H YOSSI Administration Trazodone HCl 100 mg 09/09/24 21:00 09/09/24 20:53 Trazodone Hcl 50 Mg Tablet PO 100 mg BID YOSSI Administration Discontinued Medications Generic Name Dose Route Start Last Admin Trade Name Freq PRN Reason Stop Dose Admin Desmopressin Acetate 2 mcg 09/09/24 17:45 09/09/24 23:40 Desmopressin Acetate 4 Mcg/Ml Inj IVP 09/09/24 23:46 2 mcg Q6H YOSSI Administration Diazepam 5 mg 09/09/24 02:55 09/09/24 02:57 Diazepam 5 Mg/Ml Inj IM 5 mg Q2H PRN Administration Agitation Diphenhydramine HCl 50 mg 09/09/24 02:27 09/09/24 02:32 Diphenhydramine 50 Mg/Ml Inj IM 09/09/24 02:28 50 mg ONCE ONE Administration Sodium Chloride 1,000 mls @ 500 mls/hr 09/09/24 03:42 09/09/24 05:55 0.9 % Sodium Chloride 1000 Ml IV 09/09/24 05:41 Infused .Q2H YOSSI Infusion Potassium Chloride 10 meq in 100 mls @ 100 mls/hr 09/09/24 03:45 09/09/24 10:32 Potassium Chloride IVPB 09/09/24 12:14 100 mls/hr Q90M YOSSI Administration Sodium Chloride 1,000 mls @ 150 mls/hr 09/09/24 05:52 09/09/24 09:16 0.9 % Sodium Chloride 1000 Ml IV 150 mls/hr .Q6H40M YOSSI Infusion Sodium Chloride 1,000 mls @ 100 mls/hr 09/09/24 10:30 09/09/24 21:45 0.9 % Sodium Chloride 1000 Ml IV 09/09/24 20:29 Infused .Q10H YOSSI Infusion Dextrose 1,000 mls @ 50 mls/hr 09/09/24 18:30 09/09/24 18:37 5 % Dextrose 1000 Ml IV 09/09/24 21:29 50 mls/hr .Q20H YOSSI Administration Dextrose 1,000 mls @ 50 mls/hr 09/09/24 21:45 09/09/24 22:55 5 % Dextrose 1000 Ml IV 09/09/24 22:44 0 mls/hr .Q20H YOSSI Infusion Lorazepam 2 mg 09/09/24 02:27 09/09/24 02:33 Lorazepam 2 Mg/Ml Inj IM 09/09/24 02:28 2 mg ONCE ONE Administration Olanzapine 10 mg 09/09/24 02:27 09/09/24 02:34 Olanzapine 5 Mg/Ml Inj IM 09/09/24 02:28 10 mg ONCE ONE Administration Potassium Chloride 60 meq 09/09/24 09:59 09/09/24 11:29 Potassium Chloride 10 Meq Capsule Er PO 09/09/24 10:00 60 meq ONCE ONE Administration Potassium Chloride 40 meq 09/09/24 16:46 09/09/24 17:35 Potassium Chloride 10 Meq Capsule Er PO 09/09/24 16:47 40 meq ONCE ONE Administration <Ray May MD - Last Filed: 09/09/24 08:54> Medical Decision Making Lab Data Lab results reviewed: Yes I reviewed the patient's lab results <Carlota Leblanc MD - Last Filed: 09/10/24 02:34> Lab results narrative: Many marked derangements. White count is elevated of uncertain etiology, absolute neutrophil count is high as well. Sodium markedly low, potassium impressively low. Bilirubin mildly elevated but no other signs of obstruction. Troponin 0.05, uncertain etiology. Urinalysis with trace blood and protein present but no other overwhelming signs of infection. Ketones are negative which is unexpected with her history of poor oral intake. Alcohol and toxicology screens are otherwise negative with the exception of benzodiazepines that she does reportedly take at home but she was also given benzodiazepines prior to collection of the urine so it is impossible to tell if that was from us or pre-existing. No methamphetamines or other impairing substances noted. <Carlota Leblanc MD - Last Filed: 09/10/24 02:34> Labs: Lab Results 09/09/24 09/09/24 09/09/24 Range/Units 02:44 02:55 04:26 WBC 14.02 H (4.50-11.00) K/uL RBC 4.55 (4.00-5.20) m/uL Hgb 14.8 (12.0-16.0) gm/dL Hct 39.0 (33.0-51.0) % MCV 86 (80-100) fL MCH 33 (26-34) pg MCHC 38 H (32-36) gm/dL RDW Coeff of [place] 11.8 (11.5-15.5) % Plt Count 253 (140-440) K/uL Neut % (Auto) 75.7 H (42.0-72.0) % Lymph % (Auto) 13.5 L (20-44) % [place] % (Auto) 9.0 (0.0-11.0) % Eos % (Auto) 0.4 (0.0-7.0) % Baso % (Auto) 0.4 (0.0-3.0) % Neut # (Auto) 10.60 H (1.7-7.0) K/uL Lymph # (Auto) 1.90 (0.90-2.90) K/uL [place] # (Auto) 1.30 H (0.00-0.90) K/UL Eos # (Auto) 0.10 (0.00-0.50) K/uL Baso # (Auto) 0.10 (0.00-0.30) K/uL Abs Immat Gran (auto) 0.10 (0.00-0.30) K/uL Imm/Tot Granulo (auto) 1.0 % Sodium 124 L* (135-149) mmol/L Potassium 1.9 L* (3.6-5.1) mmol/L Chloride 80 L (96-114) mmol/L Carbon Dioxide 30 (20-32) mmol/L Anion Gap 14 (7-15) mEq/L BUN 8 (7-30) mg/dL Creatinine 1.0 (0.5-1.5) mg/dL Estimated GFR 65 ml/min Glucose 196 H (60-115) mg/dL Lactate 3.6 H (0.5-1.9) mmol/L Calcium 8.8 (8.4-10.6) mg/dL Total Bilirubin 1.6 H (0.1-1.5) mg/dL AST 33 (12-35) U/L ALT 21 (4-35) U/L Alkaline Phosphatase 73 (40-150) U/L Troponin I 0.05 H (0.01-0.04) ng/mL C-Reactive Protein 0.9 (0.5-1.0) mg/dL Total Protein 7.2 (6.0-8.3) g/dL Albumin 4.5 (3.3-5.0) g/dL Lipase 98 (23-300) U/L Urine Color Yellow (Yellow) Urine Appearance Clear (Clear) Urine pH 5.5 (5.0-8.5) Ur Specific [place] 1.015 (1.000-1.030) Urine Protein 2+ A (Negative) Urine Glucose (UA) Negative (Negative) Urine Ketones Negative (Negative) Urine Blood Trace-intact A (Negative) Urine Nitrite Negative (Negative) Urine Bilirubin Negative (Negative) Urine Urobilinogen 1.0 (0.2-1.0) Ur Leukocyte Esterase Negative (Negative) Urine RBC 0-2 (0-2) Urine WBC 0-2 (0-5) Ur Squamous Epith Cells Few (None-Few) Urine Bacteria None (None) Salicylates < 1.0 L (1.0-10) mg/dL Acetaminophen < 10.0 (10.0-30.0) ug/mL Ethyl Alcohol < 0.01 (0.01-0.03) % Lab Acknowledgement Test Added 09/09/24 09/09/24 Range/Units 06:10 08:15 WBC (4.50-11.00) K/uL RBC (4.00-5.20) m/uL Hgb (12.0-16.0) gm/dL Hct (33.0-51.0) % MCV (80-100) fL MCH (26-34) pg MCHC (32-36) gm/dL RDW Coeff of [place] (11.5-15.5) % Plt Count (140-440) K/uL Neut % (Auto) (42.0-72.0) % Lymph % (Auto) (20-44) % [place] % (Auto) (0.0-11.0) % Eos % (Auto) (0.0-7.0) % Baso % (Auto) (0.0-3.0) % Neut # (Auto) (1.7-7.0) K/uL Lymph # (Auto) (0.90-2.90) K/uL [place] # (Auto) (0.00-0.90) K/UL Eos # (Auto) (0.00-0.50) K/uL Baso # (Auto) (0.00-0.30) K/uL Abs Immat Gran (auto) (0.00-0.30) K/uL Imm/Tot Granulo (auto) % Sodium 130 L (135-149) mmol/L Potassium 2.4 L* (3.6-5.1) mmol/L Chloride 90 L (96-114) mmol/L Carbon Dioxide 34 H (20-32) mmol/L Anion Gap 6 L (7-15) mEq/L BUN 6 L (7-30) mg/dL Creatinine 0.8 (0.5-1.5) mg/dL Estimated GFR 85 ml/min Glucose 101 (60-115) mg/dL Lactate 0.8 (0.5-1.9) mmol/L Calcium 8.4 (8.4-10.6) mg/dL Total Bilirubin (0.1-1.5) mg/dL AST (12-35) U/L ALT (4-35) U/L Alkaline Phosphatase (40-150) U/L Troponin I 0.13 H* 0.10 H* (0.01-0.04) ng/mL C-Reactive Protein (0.5-1.0) mg/dL Total Protein (6.0-8.3) g/dL Albumin (3.3-5.0) g/dL Lipase (23-300) U/L Urine Color (Yellow) Urine Appearance (Clear) Urine pH (5.0-8.5) Ur Specific [place] (1.000-1.030) Urine Protein (Negative) Urine Glucose (UA) (Negative) Urine Ketones (Negative) Urine Blood (Negative) Urine Nitrite (Negative) Urine Bilirubin (Negative) Urine Urobilinogen (0.2-1.0) Ur Leukocyte Esterase (Negative) Urine RBC (0-2) Urine WBC (0-5) Ur Squamous Epith Cells (None-Few) Urine Bacteria (None) Salicylates (1.0-10) mg/dL Acetaminophen (10.0-30.0) ug/mL Ethyl Alcohol (0.01-0.03) % Lab Acknowledgement <Carlota Leblanc MD - Last Filed: 09/10/24 02:34> Lab Results 09/09/24 09/09/24 09/09/24 Range/Units 02:44 02:55 04:26 WBC 14.02 H (4.50-11.00) K/uL RBC 4.55 (4.00-5.20) m/uL Hgb 14.8 (12.0-16.0) gm/dL Hct 39.0 (33.0-51.0) % MCV 86 (80-100) fL MCH 33 (26-34) pg MCHC 38 H (32-36) gm/dL RDW Coeff of [place] 11.8 (11.5-15.5) % Plt Count 253 (140-440) K/uL Neut % (Auto) 75.7 H (42.0-72.0) % Lymph % (Auto) 13.5 L (20-44) % [place] % (Auto) 9.0 (0.0-11.0) % Eos % (Auto) 0.4 (0.0-7.0) % Baso % (Auto) 0.4 (0.0-3.0) % Neut # (Auto) 10.60 H (1.7-7.0) K/uL Lymph # (Auto) 1.90 (0.90-2.90) K/uL [place] # (Auto) 1.30 H (0.00-0.90) K/UL Eos # (Auto) 0.10 (0.00-0.50) K/uL Baso # (Auto) 0.10 (0.00-0.30) K/uL Abs Immat Gran (auto) 0.10 (0.00-0.30) K/uL Imm/Tot Granulo (auto) 1.0 % Sodium 124 L* (135-149) mmol/L Potassium 1.9 L* (3.6-5.1) mmol/L Chloride 80 L (96-114) mmol/L Carbon Dioxide 30 (20-32) mmol/L Anion Gap 14 (7-15) mEq/L BUN 8 (7-30) mg/dL Creatinine 1.0 (0.5-1.5) mg/dL Estimated GFR 65 ml/min Glucose 196 H (60-115) mg/dL Lactate 3.6 H (0.5-1.9) mmol/L Calcium 8.8 (8.4-10.6) mg/dL Total Bilirubin 1.6 H (0.1-1.5) mg/dL AST 33 (12-35) U/L ALT 21 (4-35) U/L Alkaline Phosphatase 73 (40-150) U/L Troponin I 0.05 H (0.01-0.04) ng/mL C-Reactive Protein 0.9 (0.5-1.0) mg/dL Total Protein 7.2 (6.0-8.3) g/dL Albumin 4.5 (3.3-5.0) g/dL Lipase 98 (23-300) U/L Urine Color Yellow (Yellow) Urine Appearance Clear (Clear) Urine pH 5.5 (5.0-8.5) Ur Specific [place] 1.015 (1.000-1.030) Urine Protein 2+ A (Negative) Urine Glucose (UA) Negative (Negative) Urine Ketones Negative (Negative) Urine Blood Trace-intact A (Negative) Urine Nitrite Negative (Negative) Urine Bilirubin Negative (Negative) Urine Urobilinogen 1.0 (0.2-1.0) Ur Leukocyte Esterase Negative (Negative) Urine RBC 0-2 (0-2) Urine WBC 0-2 (0-5) Ur Squamous Epith Cells Few (None-Few) Urine Bacteria None (None) Salicylates < 1.0 L (1.0-10) mg/dL Acetaminophen < 10.0 (10.0-30.0) ug/mL Ethyl Alcohol < 0.01 (0.01-0.03) % Lab Acknowledgement Test Added 09/09/24 09/09/24 Range/Units 06:10 08:15 WBC (4.50-11.00) K/uL RBC (4.00-5.20) m/uL Hgb (12.0-16.0) gm/dL Hct (33.0-51.0) % MCV (80-100) fL MCH (26-34) pg MCHC (32-36) gm/dL RDW Coeff of [place] (11.5-15.5) % Plt Count (140-440) K/uL Neut % (Auto) (42.0-72.0) % Lymph % (Auto) (20-44) % [place] % (Auto) (0.0-11.0) % Eos % (Auto) (0.0-7.0) % Baso % (Auto) (0.0-3.0) % Neut # (Auto) (1.7-7.0) K/uL Lymph # (Auto) (0.90-2.90) K/uL [place] # (Auto) (0.00-0.90) K/UL Eos # (Auto) (0.00-0.50) K/uL Baso # (Auto) (0.00-0.30) K/uL Abs Immat Gran (auto) (0.00-0.30) K/uL Imm/Tot Granulo (auto) % Sodium 130 L (135-149) mmol/L Potassium 2.4 L* (3.6-5.1) mmol/L Chloride 90 L (96-114) mmol/L Carbon Dioxide 34 H (20-32) mmol/L Anion Gap 6 L (7-15) mEq/L BUN 6 L (7-30) mg/dL Creatinine 0.8 (0.5-1.5) mg/dL Estimated GFR 85 ml/min Glucose 101 (60-115) mg/dL Lactate 0.8 (0.5-1.9) mmol/L Calcium 8.4 (8.4-10.6) mg/dL Total Bilirubin (0.1-1.5) mg/dL AST (12-35) U/L ALT (4-35) U/L Alkaline Phosphatase (40-150) U/L Troponin I 0.13 H* 0.10 H* (0.01-0.04) ng/mL C-Reactive Protein (0.5-1.0) mg/dL Total Protein (6.0-8.3) g/dL Albumin (3.3-5.0) g/dL Lipase (23-300) U/L Urine Color (Yellow) Urine Appearance (Clear) Urine pH (5.0-8.5) Ur Specific [place] (1.000-1.030) Urine Protein (Negative) Urine Glucose (UA) (Negative) Urine Ketones (Negative) Urine Blood (Negative) Urine Nitrite (Negative) Urine Bilirubin (Negative) Urine Urobilinogen (0.2-1.0) Ur Leukocyte Esterase (Negative) Urine RBC (0-2) Urine WBC (0-5) Ur Squamous Epith Cells (None-Few) Urine Bacteria (None) Salicylates (1.0-10) mg/dL Acetaminophen (10.0-30.0) ug/mL Ethyl Alcohol (0.01-0.03) % Lab Acknowledgement <Ray May MD - Last Filed: 09/09/24 08:54> Imaging Data US - abdomen: Attestation: I have reviewed the pertinent imaging results. <Carlota Leblanc MD - Last Filed: 09/10/24 02:34> My impression: Excellent quality images, all normal. Of note, gallbladder is surgically absent. <Carlota Leblanc MD - Last Filed: 09/10/24 02:34> Radiologist's impression: FINDINGS: Pancreas: Most of the pancreas is well seen and is normal. Liver: Normal hepatic echogenicity and normal echotexture. No mass. Patent portal vein with normal directional flow. Gallbladder and bile ducts: Cholecystectomy. No intrahepatic biliary ductal dilatation. The extrahepatic bile duct measures up to 9 millimeters. No filling defects seen. No collection in the gallbladder fossa. RIGHT Kidney: Renal length: 10.4 cm Parenchyma: Normal thickness and normal echogenicity. Cyst: None Mass: None Calculi: None Urinary tract: Not dilated. Abdominal aorta: Normal caliber of the upper abdominal aorta. Ascites: None. IMPRESSION: The extrahepatic bile duct is slightly more dilated than typical after cholecystectomy. No obstructing stone or lesion seen. Dictated by Deepthi Fairbanks MD @ 09/09/2024 5:09:51 AM <Carlota Leblanc MD - Last Filed: 09/10/24 02:34> CT scan - abdomen: Attestation: I have reviewed the pertinent imaging results. <Carlota Leblanc MD - Last Filed: 09/10/24 02:34> My impression: Normal looking CT. No obstruction, no mass, no obvious pancreatitis or inflammatory changes. <Carlota Leblanc MD - Last Filed: 09/10/24 02:34> Radiologist's impression: FINDINGS: Lung bases: Normal. Liver: There is a peripherally calcified lesion in the posterior inferior right lobe of the liver in segment . Measures 8 millimeters. Similar lesion seen more superiorly and posteriorly and measures 8 millimeters. These are along the capsule and may be dropped stones. No adjacent inflammatory findings or collection. Gallbladder and bile ducts: Cholecystectomy. Mild diffuse intrahepatic biliary ductal dilatation. The extrahepatic bile duct is mildly dilated measures about 9 millimeters. Pancreas: Diffuse pancreatic atrophy. Spleen: Small splenule. Normal spleen size. Adrenal glands: Normal. Kidneys: Normal parenchyma. No cyst or solid mass. No calculi. No urinary tract dilation. Urinary bladder: Decompressed with a [place] catheter. Pelvis: No cyst or mass. Vessels: Normal. Bowel: No dilated or inflamed bowel. Appendix not seen. Mild stool burden. Lymph nodes: No adenopathy. Peritoneum: No ascites. Abdominal wall: No hernia. Bones: No fractures. No focal worrisome bone lesions. IMPRESSION: 1. Cholecystectomy. Mild biliary ductal dilatation. If there is concern for acute biliary obstruction, recommend MRCP versus ERCP. This appearance can often be seen with reservoir effect after cholecystectomy. 2. Partially calcified peripheral or capsular liver lesions may be dropped stones. No abscess or adjacent inflammation. Please note that all CT scans at this facility use dose modulation, iterative reconstruction, and/or weight-based dosing when appropriate to reduce radiation dose to as low as reasonably achievable. Dictated by Deepthi Fairbanks MD @ 09/09/2024 5:51:17 AM <Carlota Leblanc MD - Last Filed: 09/10/24 02:34> ECG Data Attestation: I personally reviewed and interpreted this ECG as follows: <Carlota Leblanc MD - Last Filed: 09/10/24 02:34> Prior ECG tracings: not available for review <Carlota Leblanc MD - Last Filed: 09/10/24 02:34> Interpretation: Initial EKG 311 showing sinus rhythm. Mildly prolonged QT interval but no specific ischemic changes. [place] and QRS intervals are normal. Normal axis. Rate 84. Repeat EKG at 718 showing rate of 86. QT interval has improved somewhat though not completely normal. There are no new ST or T-wave abnormalities. [place] and QRS intervals are normal. [place] is normal. <Carlota Leblanc MD - Last Filed: 09/10/24 02:34> Critical Care Time Critical Care Time Critical Care Time: Yes Attestation: The patient required my highest level preparedness to intervene emergently and I personally spent this critical care time directly and personally managing the patient. This critical care time included: Obtaining a history; Examining the patient; Pulse oximetry; Ordering and reviewing of studies; Arranging urgent treatment with development of a management plan; Evaluation of patients response to treatment; Frequent reassessment discussions with other providers. This critical care time was performed to assess and manage the high probability of imminent life-threatening deterioration that could result in multiorgan failure. It was exclusive of separate billable procedures and treating other patients and teaching time. <Carlota Leblanc MD - Last Filed: 09/10/24 02:34> Total Critical Care Time in Minutes: 35 <Carlota Leblanc MD - Last Filed: 09/10/24 02:34> Discharge Plan Discharge Clinical Impression: Acute delirium, Acute hyponatremia, Acute hypokalemia <Carlota Leblanc MD - Last Filed: 09/10/24 02:34> Patient Disposition: Admitted As Observation <Carlota Leblanc MD - Last Filed: 09/10/24 02:34> Condition: Improved <Carlota Leblanc MD - Last Filed: 09/10/24 02:34>
[2024-09-09] MEDS: OLANZapine 5 MG/ML inj 10 MG IM (02:34)
--- NOTE | 2024-09-09 02:35 | PC.NURSE ---
BIBA with 4pt restraints in place upon arrival. Pt kicking and hitting out. MD at BS with multiple staff. Meds given as ordered.
[2024-09-09] MEDS: diazePAM 5 MG/ML inj IM (02:57)
[2024-09-09 02:58] LABS: Hematocrit 39.0 % (33.0-51.0); Hemoglobin* 14.8 gm/dL (12.0-16.0); Immature Granulocytes Pct Auto 1.0 %; Mean Corpuscular HGB Conc 38 gm/dL (32-36); Mean Corpuscular Hemoglobin 33 pg (26-34); Mean Corpuscular Volume 86 fL (80-100); RDW Coefficient of Variation % 11.8 % (11.5-15.5); Red Blood Count 4.55 m/uL (4.00-5.20); White Blood Count* 14.02 K/uL (4.50-11.00)
[2024-09-09 03:00] LABS: Immature Granulocytes Abs Auto 0.10 K/uL (0.00-0.30); Lymphocytes Absolute Auto 1.90 K/uL (0.90-2.90); Slide Review Reflex No
[2024-09-09 03:05] LABS: Appearance Urine Clear (Clear)
[2024-09-09 03:12] LABS: Cannabinoid Screen Urine Negative (Negative); Methamphetamines Screen Urine Negative (Negative); Tricyclic Antidepressant Urine Negative (Negative)
[2024-09-09 03:18] LABS: Albumin* 4.5 g/dL (3.3-5.0); Chloride* 80 mmol/L (96-114)
[2024-09-09 03:21] LABS: Alanine Aminotransferase* 21 U/L (4-35); Alkaline Phosphatase* 73 U/L (40-150); Anion Gap 14 mEq/L (7-15); Aspartate Amino Transferase* 33 U/L (12-35); Bilirubin Total* 1.6 mg/dL (0.1-1.5); Blood Urea Nitrogen* 8 mg/dL (7-30); Carbon Dioxide* 30 mmol/L (20-32); Creatinine* 1.0 mg/dL (0.5-1.5); Estimated Glomerular Filt Rate 65 ml/min; Total Protein* 7.2 g/dL (6.0-8.3)
[2024-09-09 03:22] LABS: Calcium* 8.8 mg/dL (8.4-10.6); Glucose* 196 mg/dL (60-115)
[2024-09-09 03:35] LABS: Acetaminophen* < 10.0 ug/mL (10.0-30.0); Ethanol* < 0.01 % (0.01-0.03); Potassium* 1.9 mmol/L (3.6-5.1); Salicylate* < 1.0 mg/dL (1.0-10); Sodium* 124 mmol/L (135-149)
--- NOTE | 2024-09-09 03:50 | PC.NURSE ---
Pt more alert and cooperative. Restraints removed and pt to CT with 2 staff. All cares explained.
[2024-09-09 03:53] LABS: Lactate Sepsis w/Reflex* 3.6 mmol/L (0.5-1.9)
[2024-09-09] MEDS: POTASSIUM CHLORIDE 10 MEQ/100 ML PIGGYBACK 100 MEQ IVPB ×6 (04:00→10:32)
--- NOTE | 2024-09-09 04:22 | CRLHL7_ITS ---
For Patients: As a result of the Century Cures Act, medical imaging exams and procedure reports are released immediately into your electronic medical record. You may view this report before your referring provider. If you have questions, please contact your health care provider. INDICATION: Nausea and upper abdominal pain COMPARISON: None. TECHNIQUE: Gamez-scale and color Doppler ultrasound of the right upper quadrant. FINDINGS: Pancreas: Most of the pancreas is well seen and is normal. Liver: Normal hepatic echogenicity and normal echotexture. No mass. Patent portal vein with normal directional flow. Gallbladder and bile ducts: Cholecystectomy. No intrahepatic biliary ductal dilatation. The extrahepatic bile duct measures up to 9 millimeters. No filling defects seen. No collection in the gallbladder fossa. RIGHT Kidney: Renal length: 10.4 cm Parenchyma: Normal thickness and normal echogenicity. Cyst: None Mass: None Calculi: None Urinary tract: Not dilated. Abdominal aorta: Normal caliber of the upper abdominal aorta. Ascites: None. IMPRESSION: The extrahepatic bile duct is slightly more dilated than typical after cholecystectomy. No obstructing stone or lesion seen. Dictated by Deepthi Fairbanks MD @ 09/09/2024 5:09:51 AM (Electronically Signed)
--- NOTE | 2024-09-09 05:06 | CRLHL7_ITS ---
For Patients: As a result of the Century Cures Act, medical imaging exams and procedure reports are released immediately into your electronic medical record. You may view this report before your referring provider. If you have questions, please contact your health care provider. INDICATION: Five days of epigastric pain with nausea and vomiting. COMPARISON: Same-day right upper quadrant ultrasound TECHNIQUE: CT of the abdomen and pelvis with intravenous contrast. Multiplanar axial, coronal, and sagittal reformats were reconstructed. Contrast: 98 mL Isovue 370. FINDINGS: Lung bases: Normal. Liver: There is a peripherally calcified lesion in the posterior inferior right lobe of the liver in segment . Measures 8 millimeters. Similar lesion seen more superiorly and posteriorly and measures 8 millimeters. These are along the capsule and may be dropped stones. No adjacent inflammatory findings or collection. Gallbladder and bile ducts: Cholecystectomy. Mild diffuse intrahepatic biliary ductal dilatation. The extrahepatic bile duct is mildly dilated measures about 9 millimeters. Pancreas: Diffuse pancreatic atrophy. Spleen: Small splenule. Normal spleen size. Adrenal glands: Normal. Kidneys: Normal parenchyma. No cyst or solid mass. No calculi. No urinary tract dilation. Urinary bladder: Decompressed with a [place] catheter. Pelvis: No cyst or mass. Vessels: Normal. Bowel: No dilated or inflamed bowel. Appendix not seen. Mild stool burden. Lymph nodes: No adenopathy. Peritoneum: No ascites. Abdominal wall: No hernia. Bones: No fractures. No focal worrisome bone lesions. IMPRESSION: 1. Cholecystectomy. Mild biliary ductal dilatation. If there is concern for acute biliary obstruction, recommend MRCP versus ERCP. This appearance can often be seen with reservoir effect after cholecystectomy. 2. Partially calcified peripheral or capsular liver lesions may be dropped stones. No abscess or adjacent inflammation. Please note that all CT scans at this facility use dose modulation, iterative reconstruction, and/or weight-based dosing when appropriate to reduce radiation dose to as low as reasonably achievable. Dictated by Deepthi Fairbanks MD @ 09/09/2024 5:51:17 AM (Electronically Signed)
[2024-09-09 06:19] LABS: Lactate Sepsis 2 Hour 0.8 mmol/L (0.5-1.9)
[2024-09-09 08:32] LABS: Chloride* 90 mmol/L (96-114); Sodium* 130 mmol/L (135-149)
[2024-09-09 08:35] LABS: Blood Urea Nitrogen* 6 mg/dL (7-30); Creatinine* 0.8 mg/dL (0.5-1.5); Estimated Glomerular Filt Rate 85 ml/min
[2024-09-09 08:36] LABS: Anion Gap 6 mEq/L (7-15); Calcium* 8.4 mg/dL (8.4-10.6); Carbon Dioxide* 34 mmol/L (20-32); Glucose* 101 mg/dL (60-115)
[2024-09-09 08:49] LABS: Potassium* 2.4 mmol/L (3.6-5.1)
[2024-09-09] MEDS: POTASSIUM CHLORIDE 10 MEQ CAPSULE ER 60 MEQ PO (11:29)
--- NOTE | 2024-09-09 11:45 | PM.IMHP1 ---
Assessment and Plan Assessment and plan (1) Acute metabolic encephalopathy due to hypoglycemia: Problem comment: -Improving. -Toxic screen was positive for benzodiazepines. Patient is on a chronic prescription of alprazolam 2 mg t.i.d. -CT head, abdomen and pelvis CT and abdominal ultrasound were unremarkable showing typical biliary changes after cholecystectomy. -WBCs 14 K, CRP within normal, UA -ve. Status: Acute (2) Acute hypokalemia: Problem comment: -Potassium low at 1.9, patient was given 5/6 potassium bag each with 10 mEq K+ and repeat potassium was 2.4. -will give the 6th potassium bag -ordered potassium chloride p.o. 60 mEq once -will repeat potassium level at 4:00 p.m. and replace as needed. Status: Acute (3) Acute hyponatremia: Problem comment: Na + 124 on presentation , improved to 130 after IV fluids given Will monitor Status: Acute (4) Elevated lactic acid level: Problem comment: Normalized after IV fluids Status: Acute (5) Elevated troponin: Problem comment: -troponin mildly elevated but then trended down. -EKG did not show ischemic changes. -ED provider contacted Dr. Grande from [facility] and he states that there is no concern, and only recommended an echo. -echo ordered Status: Acute (6) Chronic pain syndrome: Problem comment: On Suboxone from pain clinic Status: Acute (7) Anxiety: Problem comment: Not currently on SSRIs Will discuss with the patient starting her on SSRIs and/ or discussing that with her primary care physician Patient is on alprazolam 2 mg t.i.d. prescription for while. So she has chronic prescription benzodiazepine use, and I will not be able to stop it during this admission as withdrawal symptoms would be severe. Will just decrease the dose to 1 mg t.i.d. during this admission to prevent withdrawal. Patient will need to discuss tapering her does with her primary care physician as an outpatient. Status: Chronic (8) Chronic prescription benzodiazepine use: Problem comment: Will discuss with the patient starting her on SSRIs and/ or discussing that with her primary care physician Patient is on alprazolam 2 mg t.i.d. prescription for while. So she has chronic prescription benzodiazepine use, and I will not be able to stop it during this admission as withdrawal symptoms would be severe. Will just decrease the dose to 1 mg t.i.d. during this admission to prevent withdrawal. Patient will need to discuss tapering her does with her primary care physician as an outpatient. Status: Chronic (9) Hypertension: Status: Acute (10) Abnormal finding on imaging of liver: Problem comment: -CT abd: Partially calcified peripheral or capsular liver lesions may be dropped stones. No abscess or adjacent inflammation. -Recommend follow-up as an outpatient. Status: Acute Total Time Spent Total Time Spent: Today I spent 50 minutes seeing the patient, reviewing Expanse and EPIC notes/diagnostics, discussing the care plan with our care time that includes social work, PT/OT, pharmacy, RT, intermediate and documenting my impressions and plan in the medical record. Hospitalist- H&P: HPI History of Present Illness Date Seen: 09/09/24 Chief complaint: confusion Narrative: Cleo Maki is a 59 year old female with past medical history of chronic pain syndrome on Suboxone from pain clinic, history of hypertension and anxiety who presents with altered mental status after her found her in the bathroom mumbling and not making sense. He called EMS. On presentation, was patient was combative and received multiple medications including lorazepam, haloperidol, diphenhydramine and olanzapine. Afterwards. Patient can down but was a bit drowsy. When I met the patient she was calm and is able to answer some questions, though it seems she is not the best historian. She denies alcohol use and she said she did not have any illicit drugs. She denies shortness of breath, chest pain, abdominal pain. She states that she only feels tired. At the ED, patient was hemodynamically stable, not tachycardic or hypotensive. Normal saturation of oxygen at room air. CT head, abdomen and pelvis CT and abdominal ultrasound were unremarkable showing typical biliary changes after cholecystectomy. WBCs 14 K, CRP within normal, troponin mildly elevated but then trended down. Lactate was elevated on admission but after giving IV fluids it went back to normal. EKG did not show ischemic changes. Potassium low at 1.9, patient was given 5/6 potassium bags each with 10 mEq K+ and repeat potassium was 2.4. ED provider contacted Dr. Grande from [facility] and he states that there is no concern, and only recommended an echo. Toxic screen was positive for benzodiazepines. Patient is on a prescription of alprazolam 2 mg t.i.d. Review of Systems Status of ROS: Reports: 6 or more systems reviewed and unremarkable except as noted in History and below Medical Decision Making Medical Decision Making Has patient completed a Health Care Directive: No During This Stay, Who Would You Like To Make Decisions For You In The Event You Are Unable To Make Them For Yourself?: Jamil Maki (spouse) [facility] Medical History (Updated 09/09/24 @ 12:24 by Trudy Griffith MD) Chronic prescription benzodiazepine use ?Z79.899 - Other vp customer development (current) drug therapy (ICD-10) Healthcare maintenance ?Z00.00 - Encounter for general adult medical examination without abnormal findings (ICD-10) Hypertension ?I10 - Essential (primary) hypertension (ICD-10) Chronic pain syndrome ?G89.4 - Chronic pain syndrome (ICD-10) History of chronic pain ?Z87.898 - Personal history of other specified conditions (ICD-10) Anxiety ?F41.9 - Anxiety disorder, unspecified (ICD-10) Social History What is your current living situation?: I have a place to live at present, but am concerned about future Problems where you live: no known problems Problems where you live details: NA In the past 12 months, utilities in danger of being shut off: no In past 12 months, lack of transportation kept you from medical appts, meetings, work, or getting things needed for daily living: yes In the past 12 mos, have been you worried that your food would run out before you had money to buy more?: often true In the past 12 mos, the food you bought just didn't last and you didn't have money to buy more?: often true Highest level of school completed/degree received: high school graduate Smoking Status: Current every day smoker What tobacco products do you use: cigarettes Smoking packs per day: 1.5 Smoking cigarettes per day: 30.0 Smoking quit date/years: >15 years ago Second hand tobacco smoke exposure: Yes How often do you have a drink containing alcohol: never AUDIT-C Alcohol total score: 0 Non-prescribed substance use: denies use Non-prescribed substance use details: prabha Caffeine: Yes (sometimes 4 cups) How often does anyone, including family, friends and others, physically hurt you: never How often does anyone, including family, friends and others, insult or talk down to you: never How often does anyone, including family, friends and others, threaten you with harm: unable to answer How often does anyone, including family, friends and others, scream or curse at you: unable to answer service: No Health Related Social Needs: housing instability, housed, with risk of homelessness (Z59.811), food insecurity (Z59.41) and transportation insecurity (Z59.82) Meds Home Medications and Allergies Home Medications ?Medication ?Instructions ?Recorded ?Confirmed ?Type buprenorphine HCl 8 mg sublingual 8 mg sublingual DIRECTED 09/09/21 09/09/24 History tablet carisoprodol 350 mg tablet 350 mg PO TID PRN 09/09/21 09/09/24 History alprazolam 2 mg tablet 2 mg PO TID Anxiety #90 tabs 08/21/24 09/09/24 Rx cholecalciferol (vitamin D3) 50 50 mcg PO DAILY 09/09/24 09/09/24 History mcg (2,000 unit) capsule clonidine HCl 0.1 mg tablet 0.1 mg PO 3XD PRN anxiety 09/09/24 09/09/24 History linaclotide 145 mcg capsule 145 mcg PO QAM 09/09/24 09/09/24 History (Linzess) meloxicam 15 mg tablet 15 mg PO DAILY pain 09/09/24 09/09/24 History omeprazole 20 mg capsule,delayed 20 mg PO QAM 09/09/24 09/09/24 History release trazodone 100 mg tablet 100 mg PO BID 09/09/24 09/09/24 History Allergies Allergy/AdvReac Type Severity Reaction Status Date / Time morphine Allergy Unknown Itch Verified 08/25/23 14:44 Penicillin Allergy Severe Hives Uncoded 08/25/23 14:44 Exam Narrative: Exam Narrative: Physical exam GENERAL: Drowsy, no acute distress. HEAD AND NECK: Atraumatic, normocephalic CARDIOVASCULAR: RRR. Normal S1, S2. No murmurs. RESPIRATORY: Clear to auscultation B/L. Good air entry B/L. No wheezes or rhonchi. GASTROINTESTINAL: Not distended, not tender to palpation. NEUROLOGY: Alert, awake, oriented X 3 (answered Qs appropriately). Normal speech. No facial asymmetry, patient was able to raise all her limbs without drifting. PSYCH: Normal mood, normal affect. Const: Vital Signs, click to edit/add: Vital Signs - 24 hr 09/09/24 02:30 09/09/24 02:30 09/09/24 02:38 Temperature 98.4 F Pulse Rate Pulse Rate [Left P ulse Oximeter] Pulse Rate [Pulse Oximeter] 63 Respiratory Rate 22 22 Blood Pressure Blood Pressure [Le ft Arm] Blood Pressure [Ri ght Upper Arm] 149/110 H Pulse Oximetry 100 [facility] 09/09/24 03:18 09/09/24 03:19 09/09/24 03:30 Temperature Pulse Rate 78 73 Pulse Rate [Left P ulse Oximeter] Pulse Rate [Pulse Oximeter] Respiratory Rate 13 13 16 Blood Pressure 109/68 Blood Pressure [Le ft Arm] Blood Pressure [Ri ght Upper Arm] Pulse Oximetry 93 92 Oxygen Delivery Pr thod 09/09/24 03:30 09/09/24 03:31 09/09/24 03:32 Temperature Pulse Rate 87 80 82 Pulse Rate [Left P ulse Oximeter] Pulse Rate [Pulse Oximeter] Respiratory Rate 15 13 16 Blood Pressure 114/73 Blood Pressure [Le ft Arm] Blood Pressure [Ri ght Upper Arm] Pulse Oximetry 95 94 96 Oxygen Delivery Pr thod 09/09/24 03:45 09/09/24 03:48 09/09/24 04:00 Temperature Pulse Rate 97 Pulse Rate [Left P ulse Oximeter] Pulse Rate [Pulse Oximeter] Respiratory Rate 16 13 16 Blood Pressure 148/122 H Blood Pressure [Le ft Arm] Blood Pressure [Ri ght Upper Arm] Pulse Oximetry 94 Oxygen Delivery Pr thod 09/09/24 04:02 09/09/24 04:17 09/09/24 04:31 Temperature Pulse Rate 91 81 86 Pulse Rate [Left P ulse Oximeter] Pulse Rate [Pulse Oximeter] Respiratory Rate 16 14 13 Blood Pressure 145/68 H 131/82 120/80 Blood Pressure [Le ft Arm] Blood Pressure [Ri ght Upper Arm] Pulse Oximetry 98 99 97 Oxygen Delivery Pr thod 09/09/24 04:46 09/09/24 05:02 09/09/24 05:16 Temperature Pulse Rate 88 88 85 Pulse Rate [Left P ulse Oximeter] Pulse Rate [Pulse Oximeter] Respiratory Rate 13 14 13 Blood Pressure 133/81 122/81 124/79 Blood Pressure [Le ft Arm] Blood Pressure [Ri ght Upper Arm] Pulse Oximetry 97 98 96 Oxygen Delivery Me thod 09/09/24 05:28 09/09/24 06:01 09/09/24 06:31 Temperature Pulse Rate 104 H 86 90 Pulse Rate [Left P ulse Oximeter] Pulse Rate [Pulse Oximeter] Respiratory Rate 16 16 14 Blood Pressure 135/89 122/71 125/75 Blood Pressure [Le ft Arm] Blood Pressure [Ri ght Upper Arm] Pulse Oximetry 97 96 97 Oxygen Delivery Me thod 09/09/24 06:32 09/09/24 06:45 09/09/24 07:00 Temperature Pulse Rate 86 87 85 Pulse Rate [Left P ulse Oximeter] Pulse Rate [Pulse Oximeter] Respiratory Rate 13 17 13 Blood Pressure Blood Pressure [Le ft Arm] Blood Pressure [Ri ght Upper Arm] Pulse Oximetry 97 97 97 Oxygen Delivery Pr thod 09/09/24 07:01 09/09/24 07:30 09/09/24 07:32 Temperature Pulse Rate 87 84 81 Pulse Rate [Left P ulse Oximeter] Pulse Rate [Pulse Oximeter] Respiratory Rate 14 13 13 Blood Pressure 128/75 125/73 Blood Pressure [Le ft Arm] Blood Pressure [Ri ght Upper Arm] Pulse Oximetry 96 97 98 Oxygen Delivery Pr thod 09/09/24 07:33 09/09/24 07:45 09/09/24 08:04 Temperature Pulse Rate 83 81 91 Pulse Rate [Left P ulse Oximeter] Pulse Rate [Pulse Oximeter] Respiratory Rate 13 12 13 Blood Pressure 154/93 H Blood Pressure [Le ft Arm] Blood Pressure [Ri ght Upper Arm] Pulse Oximetry 97 98 98 Oxygen Delivery Me thod 09/09/24 08:15 09/09/24 08:32 09/09/24 09:00 Temperature Pulse Rate 78 77 80 Pulse Rate [Left P ulse Oximeter] Pulse Rate [Pulse Oximeter] Respiratory Rate 18 14 13 Blood Pressure 113/56 L Blood Pressure [Le ft Arm] Blood Pressure [Ri ght Upper Arm] Pulse Oximetry 98 95 98 Oxygen Delivery Me thod 09/09/24 09:02 09/09/24 09:03 09/09/24 09:25 Temperature 97.4 F L Pulse Rate 76 78 Pulse Rate [Left P ulse Oximeter] 79 Pulse Rate [Pulse Oximeter] Respiratory Rate 12 16 Blood Pressure 118/77 Blood Pressure [Le ft Arm] 149/81 H Blood Pressure [Ri ght Upper Arm] Pulse Oximetry 96 94 96 Oxygen Delivery Me thod Room Air 09/09/24 09:25 Temperature Pulse Rate Pulse Rate [Left P ulse Oximeter] Pulse Rate [Pulse Oximeter] Respiratory Rate 16 Blood Pressure Blood Pressure [Le ft Arm] Blood Pressure [Ri ght Upper Arm] Pulse Oximetry 96 Oxygen Delivery Me thod Room Air Hospitalist - H&P: Result Labs Labs: Short CBC 09/09/24 Range/Units 02:44 WBC 14.02 H (4.50-11.00) K/uL Hgb 14.8 (12.0-16.0) gm/dL Hct 39.0 (33.0-51.0) % Plt Count 253 (140-440) K/uL BMP 09/09/24 09/09/24 02:44 08:15 Sodium 124 L* 130 L Potassium 1.9 L* 2.4 L* Chloride 80 L 90 L Carbon Dioxide 30 34 H BUN 8 6 L Creatinine 1.0 0.8 Glucose 196 H 101 Calcium 8.8 8.4 Cardiac Enzymes 09/09/24 09/09/24 09/09/24 Range/Units 02:44 06:10 08:15 Troponin I 0.05 H 0.13 H* 0.10 H* (0.01-0.04) ng/mL Liver Function 09/09/24 Range/Units 02:44 Total Bilirubin 1.6 H (0.1-1.5) mg/dL AST 33 (12-35) U/L ALT 21 (4-35) U/L Alkaline Phosphatase 73 (40-150) U/L Albumin 4.5 (3.3-5.0) g/dL Urine 09/09/24 Range/Units 02:55 Urine Color Yellow (Yellow) Urine Appearance Clear (Clear) Urine pH 5.5 (5.0-8.5) Ur Specific Parrish 1.015 (1.000-1.030) Urine Protein 2+ A (Negative) Urine Glucose (UA) Negative (Negative) ECG Attestation: I personally reviewed and interpreted this ECG as follows: ECG interpretation date: 09/09/24 Pacemaker model: Normal sinus rhythm, nonspecific T-wave/ST interval changes. QTC high 586. Imaging CT scan - abdomen: Attestation: I have reviewed the pertinent imaging results. Radiologist's impression: TECHNIQUE: CT of the abdomen and pelvis with intravenous contrast. Multiplanar axial, coronal, and sagittal reformats were reconstructed. Contrast: 98 mL Isovue 370. FINDINGS: Lung bases: Normal. Liver: There is a peripherally calcified lesion in the posterior inferior right lobe of the liver in segment . Measures 8 millimeters. Similar lesion seen more superiorly and posteriorly and measures 8 millimeters. These are along the capsule and may be dropped stones. No adjacent inflammatory findings or collection. Gallbladder and bile ducts: Cholecystectomy. Mild diffuse intrahepatic biliary ductal dilatation. The extrahepatic bile duct is mildly dilated measures about 9 millimeters. Pancreas: Diffuse pancreatic atrophy. Spleen: Small splenule. Normal spleen size. Adrenal glands: Normal. Kidneys: Normal parenchyma. No cyst or solid mass. No calculi. No urinary tract dilation. Urinary bladder: Decompressed with a G[place] catheter. Pelvis: No cyst or mass. Vessels: Normal. Bowel: No dilated or inflamed bowel. Appendix not seen. Mild stool burden. Lymph nodes: No adenopathy. Peritoneum: No ascites. Abdominal wall: No hernia. Bones: No fractures. No focal worrisome bone lesions. IMPRESSION: 1. Cholecystectomy. Mild biliary ductal dilatation. If there is concern for acute biliary obstruction, recommend MRCP versus ERCP. This appearance can often be seen with reservoir effect after cholecystectomy. 2. Partially calcified peripheral or capsular liver lesions may be dropped stones. No abscess or adjacent inflammation. CT scan - head: Radiologist's impression: INDICATION: Altered mental status and confusion. COMPARISON: None. TECHNIQUE: CT of the brain / head without intravenous contrast. Multiplanar axial, coronal, and sagittal reformats were reconstructed. FINDINGS: No intracranial hemorrhage. Normal appearance of the white matter. No acute or subacute cortically based infarct. No cerebral edema. No mass or mass effect. Normal ventricles. No skull fractures. No worrisome focal bone lesion. IMPRESSION: Normal head CT. Please note that all CT scans at this facility use dose modulation, iterative reconstruction, and/or weight-based dosing when appropriate to reduce radiation dose to as low as reasonably achievable. Dictated by Deepthi Magdi,MD @ 09/09/2024 4:13:56 AM
[2024-09-09] MEDS: LIDOCAINE 5% PATCH 1 PATCH TRANSDERMA (12:50)
[2024-09-09] MEDS: TIZANIDINE HCL 4 MG TABLET 2 MG PO (12:52)
[2024-09-09] MEDS: ACETAMINOPHEN 325 MG TABLET 650 MG PO (14:10)
[2024-09-09 14:21] LABS: Potassium* 3.0 mmol/L (3.6-5.1)
[2024-09-09 16:34] LABS: Sodium* 137 mmol/L (135-149)
--- NOTE | 2024-09-09 17:24 | PM.EN ---
Chart Event Note Chart Event Note: Dr. Griffith asked me to follow up on labs this afternoon. I note that her sodium is 137, up from 130 at 8:15 a.m., which was up from 124 on initial draw at 2:44 a.m.. This is a rate of correction of 13 in less than 24 hours. I have reviewed the up-to-date article on overview of the treatment of hyponatremia and I noted that the risk of osmotic demyelination syndrome greatest when the initial sodium is less than 120. Her initial sodium was 124. Although her initial sodium was greater than 120, which makes developing ODS much less likely, the rapid rate of correction within the 1st 24 hours of greater than 12, increases the risk of ODS. Also duration of the hyponatremia that she presented with is unknown as her last sodium drawn before this morning was about a year ago. Therefore I will use a rescue strategy since she has exceeded her correction limit and really lower the sodium by giving desmopressin and D5W and will monitor sodium. Her potassium level is now 3, up from 1.9 initially this morning. I will give her additional oral potassium and recheck in the morning.
[2024-09-09] MEDS: POTASSIUM CHLORIDE 10 MEQ CAPSULE ER 40 MEQ PO (17:35)
[2024-09-09] MEDS: 5 % DEXTROSE 1000 ML 1,000 ML 50 ML IV ×2 (18:37→21:48)
--- NOTE | 2024-09-09 18:54 | PC.NURSE ---
End of Shift Note (CCU2)? ? Patient has been cooperative and pleasant throughout shift. She was admitted for acute metabolic encephalopathy due to hypokalemia (1.9 on arrival). Patient sodium levels were low as well (124 upon arrival). Patient was very confused and somnolent through the morning. There appears to be a possible cognition impairment at baseline. Patient suffers from chronic lower back pain and has been on chronic prescription benzodiazepines use. She currently has a Nicotine patch on her upper left arm (09/09/24 @12:50), and a Lidocaine patch on her lower back (09/09/24 ?@ 12:50). Patient has a history of PTSD/Anxiety, hypertension and osteoarthritis. She has been very sleepy throughout the day but wakes up with light touch or by name. Echocardiogram was performed at 15:20 today. Appetite has been poor. She is on a 1500 ml fluid restriction. ?Patient moves well with stand by assist. ?
[2024-09-09] MEDS: ENOXAPARIN 40 MG/0.4 ML INJ SUBCUT (20:53)
[2024-09-09] MEDS: TRAZODONE HCL 50 MG TABLET 100 MG PO (20:53)
[2024-09-09] MEDS: SODIUM CHLORIDE 0.9 % (FLUSH) 10 ML SYRINGE 5 ML IVF (21:01)
[2024-09-09 21:22] LABS: Sodium* 135 mmol/L (135-149)
[2024-09-09 23:32] LABS: Sodium* 135 mmol/L (135-149)
[2024-09-10] MEDS: TIZANIDINE HCL 4 MG TABLET 2 MG PO ×2 (00:40→13:03)
[2024-09-10 03:00] VITALS: BP 128/81; PULSE 87; RESP 16; TEMP 36.1; O2SAT 96
[2024-09-10 06:02] LABS: Hematocrit 39.4 % (33.0-51.0); Hemoglobin* 14.0 gm/dL (12.0-16.0); Mean Corpuscular HGB Conc 36 gm/dL (32-36); Mean Corpuscular Hemoglobin 33 pg (26-34); Mean Corpuscular Volume 92 fL (80-100); Red Blood Count 4.28 m/uL (4.00-5.20); White Blood Count* 8.10 K/uL (4.50-11.00)
[2024-09-10 06:06] LABS: Slide Review Reflex No
[2024-09-10 06:16] LABS: Albumin* 3.7 g/dL (3.3-5.0); Chloride* 99 mmol/L (96-114); Potassium* 3.4 mmol/L (3.6-5.1); Sodium* 137 mmol/L (135-149)
[2024-09-10 06:18] LABS: Blood Urea Nitrogen* 10 mg/dL (7-30); Creatinine* 0.8 mg/dL (0.5-1.5); Est. Creatinine Clearance* 85.67; Estimated Glomerular Filt Rate 85 ml/min
[2024-09-10 06:19] LABS: Alanine Aminotransferase* 11 U/L (4-35); Alkaline Phosphatase* 63 U/L (40-150); Anion Gap 4 mEq/L (7-15); Aspartate Amino Transferase* 22 U/L (12-35); Bilirubin Total* 0.8 mg/dL (0.1-1.5); Calcium* 8.9 mg/dL (8.4-10.6); Carbon Dioxide* 34 mmol/L (20-32); Glucose* 100 mg/dL (60-115); Total Protein* 6.1 g/dL (6.0-8.3)
[2024-09-10 07:00] VITALS: BP 140/86; PULSE 83; PULSE 87; RESP 14; TEMP 36.1; O2SAT 95
--- NOTE | 2024-09-10 07:26 | PC.NURSE ---
Arrived to find the patient alert and oriented and vitally stable. Reporting chronic pain of the lower back. No edema noted but she reports swelling of her ankles at times. Telemetry shows a NSR. Otherwise unremarkable assessment. Morning labs showed a sodium value of 137, up from 135. Per last nights outgoing MD Thakur called [facility] to alert an on-call. They recommended we start D5 but deferred the decision to the oncoming hospitalist here on our unit. Care transferred at that time. ?
[2024-09-10] MEDS: TRAZODONE HCL 50 MG TABLET 100 MG PO (08:23)
[2024-09-10] MEDS: POTASSIUM CHLORIDE 10 MEQ CAPSULE ER 30 MEQ PO (08:23)
[2024-09-10] MEDS: OMEPRAZOLE 20 MG CAPSULE DR PO (08:25)
[2024-09-10 09:00] VITALS: PULSE 111
[2024-09-10 11:00] VITALS: BP 129/91; PULSE 115; RESP 16; TEMP 36; O2SAT 100
[2024-09-10] MEDS: SODIUM CHLORIDE 0.9 % (FLUSH) 10 ML SYRINGE 5 ML IVF (11:23)
--- NOTE | 2024-09-10 11:28 | PM.DS1 ---
DS: Providers Provider Date Seen: 09/10/24 Date of admission: 09/09/24 09:16 Primary care physician: Eleuterio Bradford MD Admitting Clinician: Trudy Griffith MD Consults: 09/09/24 09:43 Consult to Molding Associate [CONS] Routine Comment: Reason for Consult:: Social Service Consult 09/09/24 09:59 Consult to Occupational Therapy [CONS] Routine Comment: Reason(s) for OT Consult:: Evaluate and Treat Any Restrictions?:: No Restrictions Consult to Physical Therapy [CONS] Routine Comment: Reason(s) for PT Consult:: Evaluate and Treat Any Restrictions?:: No Restrictions Consult to Molding Associate [CONS] Routine Comment: Reason for Consult:: Discharge Planning Needs Attending Physician on discharge: Trudy Griffith MD DS: Diagnosis Discharge Diagnosis (1) Acute metabolic encephalopathy: Status: Resolved Problem details: -Resolved -Toxic screen was positive for benzodiazepines. Patient is on a chronic prescription of alprazolam 2 mg t.i.d. -CT head, abdomen and pelvis CT and abdominal ultrasound were unremarkable showing typical biliary changes after cholecystectomy. -WBCs 14 K, CRP within normal, UA -ve. (2) Acute hypokalemia: Status: Acute Problem details: -Potassium low at 1.9, patient was given 5/6 potassium bag each with 10 mEq K+ and repeat potassium was 2.4. -will give the 6th potassium bag -ordered potassium chloride p.o. 60 mEq once -will repeat potassium level at 4:00 p.m. and replace as needed. (3) Acute hyponatremia: Status: Acute Problem details: Na + 124 on presentation , improved to 130 after IV fluids given Will monitor (4) Elevated lactic acid level: Status: Acute Problem details: Normalized after IV fluids (5) Elevated troponin: Status: Acute Problem details: -troponin mildly elevated but then trended down. -EKG did not show ischemic changes. -ED provider contacted Dr. Grande from [facility] and he states that there is no concern, and only recommended an echo. -echo ordered (6) Chronic pain syndrome: Status: Acute Problem details: On Suboxone from pain clinic (7) Anxiety: Status: Chronic Problem details: Not currently on SSRIs Will discuss with the patient starting her on SSRIs and/ or discussing that with her primary care physician Patient is on alprazolam 2 mg t.i.d. prescription for while. So she has chronic prescription benzodiazepine use, and I will not be able to stop it during this admission as withdrawal symptoms would be severe. Will just decrease the dose to 1 mg t.i.d. during this admission to prevent withdrawal. Patient will need to discuss tapering her does with her primary care physician as an outpatient. (8) Chronic prescription benzodiazepine use: Status: Chronic Problem details: Will discuss with the patient starting her on SSRIs and/ or discussing that with her primary care physician Patient is on alprazolam 2 mg t.i.d. prescription for while. So she has chronic prescription benzodiazepine use, and I will not be able to stop it during this admission as withdrawal symptoms would be severe. Will just decrease the dose to 1 mg t.i.d. during this admission to prevent withdrawal. Patient will need to discuss tapering her does with her primary care physician as an outpatient. (9) Hypertension: Status: Acute (10) Abnormal finding on imaging of liver: Status: Acute Problem details: -CT abd: Partially calcified peripheral or capsular liver lesions may be dropped stones. No abscess or adjacent inflammation. -Recommend follow-up as an outpatient. DS: Summary Hospital Course Hospital Course: Patient with past medical history of chronic pain syndrome, hypertension and anxiety who is currently on Suboxone and on a high dose benzodiazepines prescribed from an outpatient clinic presents after she was confused with altered mental status. Patient was admitted for observation and was found to have hyponatremia and hypokalemia, we worked on her electrolytes and she is back to normal. Her acute encephalopathy was resolved and we think it might be related to benzodiazepine intake. Troponin was mildly elevated and then trended down cardiology were consulted and they states that it is not a concern it might be related to hypotension and they recommended an echo. An echo was done and it was unremarkable. Discussed in length following with the patient: follow-up with primary care physician within 1 week. need to discuss the need to lower alprazolam dose and frequency as it is high risk for confusion and falls. CT scan imaging showed the following abnormality: Partially calcified peripheral or capsular liver lesions may be dropped stones. No abscess or adjacent inflammation. To discuss with primary care physician the need to follow-up of this liver abnormality as an outpatient. Status at Discharge Functional status at discharge: uses cane/walker Overall status at discharge: patient is back to baseline Time Spent with Patient Time attestation: Total time spent providing and/or coordinating discharge services: Exam Narrative: Exam Narrative: Physical exam GENERAL: Comfortable, no acute distress. HEAD AND NECK: Atraumatic, normocephalic CARDIOVASCULAR: RRR. Normal S1, S2. No murmurs. RESPIRATORY: Clear to auscultation B/L. Good air entry B/L. No wheezes or rhonchi. NEUROLOGY: Alert, awake, oriented X 3. Normal speech. Moving all 4 limbs. PSYCH: Normal mood, normal affect. Const: Vital Signs, click to edit/add: Vital Signs - 24 hr 09/09/24 15:00 09/09/24 15:00 09/09/24 15:00 Temperature 97.1 F L Pulse Rate 85 Pulse Rate [Left P ulse Oximeter] 86 Pulse Rate [Right Pulse Oximeter] Respiratory Rate 14 16 Blood Pressure [Le ft Arm] 113/65 Pulse Oximetry [facility] 09/09/24 19:30 09/09/24 22:22 09/09/24 23:00 Temperature 97.9 F 97.2 F L Pulse Rate 85 Pulse Rate [Left P ulse Oximeter] 81 77 Pulse Rate [Right Pulse Oximeter] Respiratory Rate 16 16 Blood Pressure [Le ft Arm] 132/79 114/78 Pulse Oximetry 97 96 [facility] Room Air 09/10/24 03:00 09/10/24 07:00 09/10/24 07:00 Temperature 97 F L 97 F L Pulse Rate Pulse Rate [Left P ulse Oximeter] 87 87 Pulse Rate [Right Pulse Oximeter] 83 Respiratory Rate 16 14 14 Blood Pressure [Le ft Arm] 128/81 140/86 H Pulse Oximetry 96 95 [facility] 09/10/24 09:00 Temperature Pulse Rate 111 H Pulse Rate [Left P ulse Oximeter] Pulse Rate [Right Pulse Oximeter] Respiratory Rate Blood Pressure [Le ft Arm] Pulse Oximetry [facility] DS: Data Data Completed and Pending Labs on day of discharge: Labs from last 24 hours 09/10/24 09/09/24 09/09/24 05:45 23:16 21:03 WBC 8.10 RBC 4.28 Hgb 14.0 Hct 39.4 MCV 92 MCH 33 MCHC 36 Plt Count 168 Sodium 137 135 135 Potassium 3.4 L Chloride 99 Carbon Dioxide 34 H Anion Gap 4 L BUN 10 Creatinine 0.8 Estimated Creat Clear 85.67 Estimated GFR 85 Glucose 100 Calcium 8.9 Magnesium 1.6 Total Bilirubin 0.8 AST 22 ALT 11 Alkaline Phosphatase 63 Total Protein 6.1 Albumin 3.7 09/09/24 09/09/24 15:58 13:01 WBC RBC Hgb Hct MCV MCH MCHC Plt Count Sodium 137 Potassium 3.0 L Chloride Carbon Dioxide Anion Gap BUN Creatinine Estimated Creat Clear Estimated GFR Glucose Calcium Magnesium Total Bilirubin AST ALT Alkaline Phosphatase Total Protein Albumin Discharge Plan Discharge Disposition: Home w/ Parent or Adult Date of Admission: 09/09/24 09:16 Attending Provider on Discharge: Trudy Griffith Primary Care Provider: Eleuterio Bradford Condition: Improved Anticipated Discharge Date/Time: 09/10/24 11:25 Discharge Medications: Continued buprenorphine HCl 8 mg tablet, sublingual 8 mg sublingual DIRECTED Rx Instructions: 1 tab QAM, 0.5 tab every afternoon, 0.5 tab QPM carisoprodol 350 mg tablet 350 mg PO TID PRN clonidine HCl 0.1 mg tablet 0.1 mg PO 3XD PRN (Reason: anxiety) meloxicam 15 mg tablet 15 mg PO DAILY trazodone 100 mg tablet 100 mg PO BID omeprazole 20 mg capsule,delayed release(DR/EC) 20 mg PO QAM cholecalciferol (vitamin D3) 50 mcg (2,000 unit) capsule 50 mcg PO DAILY Linzess 145 mcg capsule 145 mcg PO QAM alprazolam 2 mg tablet 2 mg PO TID Qty: 90 0RF Discharge Orders: Discharge Order (Routine); Ordered 09/10/24 Ordered By: Trudy Griffith Patient Education: Benzodiazepine Use Disorder (DC) Additional Instructions: You need to follow-up with your primary care physician within 1 week. You need to discuss the need to lower alprazolam dose and frequency as it is high risk for confusion and falls. CT scan imaging showed the following abnormality: Partially calcified peripheral or capsular liver lesions may be dropped stones. No abscess or adjacent inflammation. Please discuss with your primary care physician the need to follow-up of this liver abnormality as an outpatient. Activity Level: Activity as Tolerated Discharge Diet: Regular Follow Up Appointments: Eleuterio Bradford MD [Primary Care Provider, Internal Medicine] Forms: [employer] Info Instructions
[2024-09-10] MEDS: LIDOCAINE 5% PATCH 1 PATCH TRANSDERMA (13:01)
--- NOTE | 2024-09-10 13:02 | PC.SOCIAL ---
Discharge planning: SW met with patient to discuss housing, transportation and food insecurity. Patient was often tangential in their thought process while speaking with social work. SW provided active listening as patient discussed her family history and the current political state of the [place]. 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 Patient reports that is has mental illness and also diabetes. Patient reports on the night that she came in she was taking her medications and her had a cut on his arm that she was helping him with and then the next thing she knows she was in the hospital. When SW asked about supports at home patient states that they are not connected to any services aside from 'food stamps'. Patient explains that they borrow their [id number] truck to go shopping and had no concerns with this. Patient discusses that in regards to housing, the landlord would like to sell the house they are renting and wants them to move. Patient states that she has been looking for housing and has contacted the [facility] and [place] and no one has anything for them. Patient did not discuss any timeline for when the landlord would like them to vacate. SW tried to direct the patient to discuss her anxiety and stress, however, patient deflected and discussed her and family instead and would not discuss her own mental health. SW discussed trying to get services in the home for patient and her through a waiver program. SW discussed patient needing to complete a [place] Assessment with the community health and patient was open to making a referral if the community health allows it. SW also provided the information for patient to call on her own. SW also discussed a referral to the [facility] but patient declined. Patient had no other questions or concerns at this time. In regards to transportation home, patient states her needs to be informed of discharge and then he will call her [id number] to assist with discharge. SW consulted with SW supervisor contact and service clerks about this case. SW supervisor contact and service clerks suggested calling [facility] to determine if any cases open. ALVARADO called Candice Sifuent[facility] who states there are no [facility].
--- NOTE | 2024-09-10 17:33 | PC.NURSE ---
[id number]: Pt. AOX4. Pt VSS. Pt. worked w/ PT, uses cane with SBA to BR. Up in the chair. Morning med pass, RN observed pt. take pills. Pt. immediately went up to go to BR. Upon return to the chair from BR, RN went to put pulse ox on pt's hand and noted a small pill. Pt. verbalized she was holding on to one did not state why. RN reinforced need to take all pills or notify RN if she did not want, so that they could be properly put back. RN directly observed pt. then consume the pill she was holding on to. IV removed at d/c. Nicotine patch and Lidocaine patch left on. RN called and spoke to pt's ems driver and to instruct removal of nicotine patch. Education provided on meds, follow-up appt, s & s of benzo overdose, hypokalemia, and hyponatremia. Brother in law picked pt. up. Wheeled out to his truck by ABDIAZIZ.
--- NOTE | 2024-09-11 13:27 | PC.SOCIAL ---
Discharge planning: ALVARADO received voicemail from Ling at [facility] stating that SW can make a referral for a [place] Assessment for patient's and then the [facility] will call them. SW called the county and left patient information so they can contact her about completing a [place] [place] to receive support at home. SW called patient and left generic voicemail with call back number.
--- NOTE | 2024-09-12 15:28 | PC.SOCIAL ---
Discharge planning: ALVARADO received vm from Cleo explaining she is doing better and taking things slow and was calling back because of the call she received from ALVARADO. ALVARADO called Cleo back and spoke with her about the referral to the [facility] that ALVARADO was able to make. ALVARADO explained again some of the potential services and that the [facility] will be reaching out to her. Patient had no questions or concerns and expressed gratitude for the care she received at the hospital.
== END 2024-09-10 16:00 | disposition home or self-care (01) ==
LOC: ED 08:53 → MEDSURG 10:32
PROVIDERS: Family Medicine; Admitting Provider Student in an Organized Health Care Education/Training Program; Emergency Provider Family Medicine; PCP Internal Medicine; Visit Provider Student in an Organized Health Care Education/Training Program
DX: G93.41 Metabolic encephalopathy (principal); E16.2 Hypoglycemia, unspecified; E87.6 Hypokalemia; E87.1 Hypo-osmolality and hyponatremia; G89.4 Chronic pain syndrome; F41.9 Anxiety disorder, unspecified; Z79.899 Other long term (current) drug therapy; I10 Essential (primary) hypertension; R93.2 Abnormal findings on diagnostic imaging of liver and biliary tract
CPT/HCPCS: 36415; 70450; 74177; 76705; 80048; 80053; 80143; 80179; 80306; 81001; 81003; 82077; 83605; 83690; 83735; 84132; 84295; 84484; 85025; 85027; 86140; 93005; 93306; 94761; 97116; 97161; 97165; 97535; 99284; 99291; J0571; A9270; G0378; J1200; J1650; J2060; J2597; J3360; J3480; J7030; J7070; Q9967; S4990

== ENCOUNTER 2024-11-21 16:58 | Outpatient (CLI) | payer BC, SELFPAY | END 2024-11-21 16:59 | disposition home or self-care (01) | LOC: NFLDREF 16:59 | PROVIDERS: PCP Internal Medicine; Visit Provider Internal Medicine | DX: I10 Essential (primary) hypertension (principal) | CPT/HCPCS: 80053; 80061 ==